=== PATIENT | male | born 1945 | race Hispanic/Latino ===

== ENCOUNTER 2017-04-01 17:26 | Inpatient (IN) | payer MEDICARE ==
[~2017-04-01] VITALS: Ht 149.9 cm; Wt 64.7 kg
[2017-04-01] MEDS: MEROPENEM 1 GM VIAL IVP SCH (18:00)
[2017-04-01] MEDS ORDERED: PHARMACY COMMUNICATION MISC SCH (18:15)
[2017-04-01] MEDS ORDERED: ONDANSETRON HCL 4 MG/2 ML VIAL IVP PRN (18:15)
[2017-04-01] MEDS ORDERED: VANCOMYCIN 1GM+NS 250ML 250 ML IV SCH (18:15)
[2017-04-01] MEDS ORDERED: IPRATROPIUM/ALBUTEROL SULFATE 3 ML SOLUTION IH PRN (18:15)
[2017-04-01] MEDS ORDERED: MAG HYDROX/AL HYDROX/SIMETH ES 30 ML SUSP UDCUP PO PRN (18:15)
[2017-04-01] MEDS ORDERED: GUAIFENESIN SUGAR-FREE 100 MG/5 ML UDCUP PO PRN (18:15)
[2017-04-01] MEDS ORDERED: LACTULOSE 20 GM/30 ML UDCUP PO PRN (18:15)
[2017-04-01] MEDS ORDERED: NALOXONE HCL 0.4 MG/1 ML ML IVP PRN (18:15)
[2017-04-01] MEDS ORDERED: GLUCAGON 1MG KIT 1 MG ML IM PRN (18:15)
[2017-04-01] MEDS ORDERED: SODIUM CHLORIDE 0.9% 10 ML VIAL IVP SCH (18:15)
[2017-04-01] MEDS ORDERED: DiphenhydrAMINE HCL 50 MG/ML VIAL IVP PRN (18:15)
[2017-04-01] MEDS ORDERED: LIDOCAINE HCL-MPF 1% 2ML VIAL IJ PRN (18:15)
[2017-04-01] MEDS ORDERED: ZOLPIDEM TARTRATE 5 MG TAB PO PRN (18:15)
[2017-04-01] MEDS ORDERED: POTASSIUM CHLORIDE 20 MEQ ERTAB PO PRN (18:15)
[2017-04-01] MEDS ORDERED: VANCOMYCIN PROTOCOL PER PHARMACY IV SCH (18:15)
[2017-04-01] MEDS ORDERED: NITROGLYCERIN 0.4 MG SL TAB SL PRN (18:15)
[2017-04-01] MEDS ORDERED: SODIUM CHLORIDE 0.9% 1000ML 1,000 ML IV PRN (18:15)
[2017-04-01] MEDS ORDERED: ACETAMINOPHEN 325 MG TAB PO PRN ×2 (18:15)
[2017-04-01] MEDS ORDERED: MORPHINE-NS 50 MG/50 ML 50 ML IV PRN (18:15)
[2017-04-01] MEDS ORDERED: POTASSIUM CHLORIDE 10% ELIXIR 20 MEQ/15 ML UDCUP PO PRN (18:15)
[2017-04-01] MEDS ORDERED: POTASSIUM CHLORIDE 20MEQ/100ML 100 ML IV PRN (18:15)
[2017-04-01] MEDS ORDERED: DEXTROSE 50%-WATER 50 ML DISP.SYRIN IV PRN (18:15)
[2017-04-01] MEDS ORDERED: DIPHENHYDRAMINE HCL 25 MG CAPSULE PO PRN (18:15)
[2017-04-01 18:29] LABS: BASOPHILS % (AUTO) 0.5 % (0.0-5.0); EOSINOPHILS % (AUTO) 4.5 % (0.0-8.0); HEMATOCRIT 30.4 % (42-54); LYMPHOCYTES % (AUTO) 24.6 % (21.0-51.0); MEAN CORPUSCULAR HEMOGLOBIN 31.4 pg (27.0-33.0); MEAN CORPUSCULAR HGB CONC 34.4 g/dL (32.0-36.0); MEAN CORPUSCULAR VOLUME 91.3 fL (79-99); MONOCYTES % (AUTO) 9.5 % (3.0-13.0); NEUTROPHILS % (AUTO) 60.9 % (40.0-77.0); PLATELET COUNT (AUTO) 225 K/uL (130-400); RED BLOOD CELL COUNT(AUTO) 3.34 MIL/uL (4.50-6.20); RED CELL DISTRIBUTION WIDTH 13.7 % (11.0-15.5); WHITE BLOOD COUNT (AUTO) 5.3 K/uL (4.8-10.8)
[2017-04-01 18:43] LABS: CREATININE 1.4 mg/dL (0.5-1.5); POTASSIUM 4.3 mmol/L (3.5-5.1)
[2017-04-01 18:48] LABS: BILIRUBIN,TOTAL 0.2 mg/dL (0.2-1.0); TOTAL PROTEIN, SERUM 6.2 g/dL (6.0-8.3)
[2017-04-01] MEDS ORDERED: VANCOMYCIN 1GM+NS 250ML 250 ML IV ONE (19:25)
[2017-04-01] MEDS ORDERED: MEROPENEM 1 GM VIAL ONE (19:25)
[2017-04-01] MEDS ORDERED: FAMOTIDINE 20MG TAB 20 MG TAB ONE (19:25)
[2017-04-01] MEDS: INSULIN R PO SSI SQ SCH (21:00)
[2017-04-01] MEDS: FAMOTIDINE 20MG TAB 20 MG TAB PO SCH (21:00)
[2017-04-01] MEDS ORDERED: SODIUM CHLORIDE 0.9% 10 ML VIAL IVP PRN (23:45)
[2017-04-01] MEDS: SODIUM CHLORIDE 0.9% 10 ML VIAL IVP SCH (23:45)
[2017-04-02] VITALS (14 sets, daily range): BP systolic 129–182; BP diastolic 66–93
[2017-04-02] MEDS ORDERED: SODIUM CHLORIDE 0.9% 250 ML IV ONE (00:23)
[2017-04-02] MEDS ORDERED: CLOP75TA32 PO (00:58)
[2017-04-02] MEDS ORDERED: LEVO25TA54 PO (00:58)
[2017-04-02] MEDS ORDERED: AEC81 PO (00:58)
[2017-04-02] MEDS ORDERED: ATOR20TA65 PO (00:58)
[2017-04-02] MEDS ORDERED: METF10004 PO (00:58)
[2017-04-02] MEDS ORDERED: CLON0.2T PO (00:58)
[2017-04-02] MEDS ORDERED: PANT40TA PO (00:58)
[2017-04-02] MEDS ORDERED: GABA-531 PO (00:58)
[2017-04-02] MEDS ORDERED: GEMF600T3 PO (00:58)
[2017-04-02] MEDS: MEROPENEM 1 GM VIAL IVP SCH ×3 (04:28→21:26)
[2017-04-02] MEDS: INSULIN R PO SSI SQ SCH ×4 (06:52→21:47)
[2017-04-02] MEDS: SODIUM CHLORIDE 0.9% 10 ML VIAL IVP SCH ×3 (07:45→23:45)
[2017-04-02 08:33] LABS: CREATININE 1.2 mg/dL (0.5-1.5); POTASSIUM 4.6 mmol/L (3.5-5.1)
[2017-04-02 08:41] LABS: HEMATOCRIT 33.7 % (42-54); MEAN CORPUSCULAR HGB CONC 35.5 g/dL (32.0-36.0); MEAN CORPUSCULAR VOLUME 90.2 fL (79-99); PLATELET COUNT (AUTO) 240 K/uL (130-400); RED BLOOD CELL COUNT(AUTO) 3.73 MIL/uL (4.50-6.20); RED CELL DISTRIBUTION WIDTH 13.3 % (11.0-15.5); WHITE BLOOD COUNT (AUTO) 5.8 K/uL (4.8-10.8)
[2017-04-02] MEDS ORDERED: FLU VACC QS2017-18 36MOS UP/PF 60 MCG/0.5 ML ML IM NR (08:45)
[2017-04-02] MEDS: CLONIDINE HCL 0.2 MG TABLET PO SCH ×2 (09:00→23:34)
[2017-04-02] MEDS: FAMOTIDINE 20MG TAB 20 MG TAB PO SCH ×2 (12:39→21:33)
[2017-04-02] MEDS: GEMFIBROZIL 600 MG TABLET PO SCH ×2 (12:39→21:33)
[2017-04-02] MEDS: GABAPENTIN 300 MG CAPSULE PO SCH ×2 (12:40→21:33)
[2017-04-02] MEDS: HYDROCODONE/ACETAMINOPHEN 5/325 MG TAB PO PRN ×2 (12:40→23:35)
[2017-04-02] MEDS: CLOPIDOGREL BISULFATE 75 MG TAB PO SCH (12:40)
[2017-04-02] MEDS: ASPIRIN 81 MG EC TAB PO SCH (12:41)
[2017-04-02] MEDS: CLONIDINE HCL 0.1 MG TABLET PO PRN (12:45)
[2017-04-02] MEDS: SODIUM CHLORIDE 0.9% 1000ML 1,000 ML IV SCH (15:07)
[2017-04-02] MEDS ORDERED: DiphenhydrAMINE HCL 50 MG/ML VIAL IVP PRN (15:15)
[2017-04-02 15:23] LABS: HEMATOCRIT 32.4 % (42-54); MEAN CORPUSCULAR HEMOGLOBIN 32.2 pg (27.0-33.0); MEAN CORPUSCULAR HGB CONC 35.6 g/dL (32.0-36.0); MEAN CORPUSCULAR VOLUME 90.3 fL (79-99); PLATELET COUNT (AUTO) 242 K/uL (130-400); RED BLOOD CELL COUNT(AUTO) 3.59 MIL/uL (4.50-6.20); WHITE BLOOD COUNT (AUTO) 6.3 K/uL (4.8-10.8)
[2017-04-02 15:31] LABS: CREATININE 1.1 mg/dL (0.5-1.5); POTASSIUM 4.5 mmol/L (3.5-5.1)
[2017-04-02 15:35] LABS: INR 0.94 (0.85-1.15); PARTIAL THROMBOPLASTIN TIME 28.4 SEC (26.3-35.5); PROTHROMBIN TIME 9.9 SEC (9.6-11.6)
[2017-04-02] MEDS ORDERED: LIDOCAINE HCL 2% 20ML ONE (15:38)
[2017-04-02] MEDS ORDERED: NITROGLYCERIN 5 MG/ML 10 ML VIAL IV ONE (15:38)
[2017-04-02] MEDS ORDERED: HEPARIN SODIUM 1000UNIT/ML 10ML VIAL ONE (15:38)
[2017-04-02] MEDS ORDERED: ISOVUE-300 100 ML VIAL IV ONE ×2 (15:38→16:42)
[2017-04-02] MEDS ORDERED: MIDAZOLAM HCL 1 MG/ML 2ML VIAL ONE (16:31)
[2017-04-02] MEDS ORDERED: FENTANYL CITRATE PF 50 MCG/1 ML 2ML VIAL ONE (16:31)
[2017-04-02] MEDS: METFORMIN HCL 500 MG TABLET PO SCH (17:00)
[2017-04-02] MEDS ORDERED: LABETALOL 20 MG/4 ML DISP.SYRIN IV ONE (17:49)
[2017-04-02] MEDS ORDERED: NITROGLYCERIN 50 MG/D5% WATER 1 BOT ONE (18:02)
[2017-04-02] MEDS ORDERED: HYDRALAZINE HCL 20 MG/ML VIAL ONE (18:08)
[2017-04-02] MEDS ORDERED: ASPIRIN 325MG EC TAB 325 MG TABLET.DR PO ONE (18:22)
[2017-04-02] MEDS ORDERED: TICAGRELOR 90 MG TABLET ONE (18:22)
[2017-04-02] MEDS ORDERED: SODIUM CHLORIDE 0.9% 1000ML 1,000 ML IV SCH (18:23)
[2017-04-02] MEDS: ATORVASTATIN CALCIUM 20 MG TABLET PO SCH (21:33)
[2017-04-02] MEDS: VANCOMYCIN 1GM+NS 250ML 250 ML IV SCH (21:49)
[2017-04-03] VITALS (7 sets, daily range): BP systolic 130–173; BP diastolic 62–95
[2017-04-03] MEDS: SODIUM CHLORIDE 0.9% 1000ML 1,000 ML IV SCH ×2 (01:07→11:22)
[2017-04-03] MEDS: MEROPENEM 1 GM VIAL IVP SCH ×3 (02:36→17:06)
[2017-04-03 05:13] LABS: HEMATOCRIT 31.6 % (42-54); MEAN CORPUSCULAR HGB CONC 34.3 g/dL (32.0-36.0); MEAN CORPUSCULAR VOLUME 90.4 fL (79-99); PLATELET COUNT (AUTO) 237 K/uL (130-400); RED CELL DISTRIBUTION WIDTH 13.7 % (11.0-15.5); WHITE BLOOD COUNT (AUTO) 6.7 K/uL (4.8-10.8)
[2017-04-03 06:02] LABS: CREATININE 1.4 mg/dL (0.5-1.5); POTASSIUM 3.9 mmol/L (3.5-5.1)
[2017-04-03] MEDS: INSULIN R PO SSI SQ SCH ×4 (06:41→20:25)
[2017-04-03] MEDS: LEVOTHYROXINE 25 MCG TABLET PO SCH (06:42)
[2017-04-03] MEDS: SODIUM CHLORIDE 0.9% 10 ML VIAL IVP SCH ×3 (07:45→23:45)
[2017-04-03] MEDS: CLONIDINE HCL 0.2 MG TABLET PO SCH ×2 (09:00→20:21)
[2017-04-03] MEDS: CLOPIDOGREL BISULFATE 75 MG TAB PO SCH ×2 (09:00→10:53)
[2017-04-03] MEDS ORDERED: DOCUSATE SODIUM 100 MG CAP PO PRN (09:00)
[2017-04-03] MEDS: PANTOPRAZOLE SODIUM 40 MG TABLET.DR PO SCH (10:50)
[2017-04-03] MEDS: METFORMIN HCL 500 MG TABLET PO SCH ×2 (10:52→17:06)
[2017-04-03] MEDS: ASPIRIN 81 MG EC TAB PO SCH (10:53)
[2017-04-03] MEDS: FAMOTIDINE 20MG TAB 20 MG TAB PO SCH ×2 (10:53→20:11)
[2017-04-03] MEDS: GEMFIBROZIL 600 MG TABLET PO SCH ×2 (10:53→20:11)
[2017-04-03] MEDS: GABAPENTIN 300 MG CAPSULE PO SCH ×2 (10:53→20:11)
[2017-04-03] MEDS: CLONIDINE HCL 0.1 MG TABLET PO PRN ×2 (17:06→20:11)
[2017-04-03] MEDS: VANCOMYCIN 1GM+NS 250ML 250 ML IV SCH (18:05)
[2017-04-03] MEDS: ATORVASTATIN CALCIUM 20 MG TABLET PO SCH (20:11)
[2017-04-03] MEDS: HYDROCODONE/ACETAMINOPHEN 5/325 MG TAB PO PRN (20:13)
[2017-04-04] VITALS: BP 152/86
[2017-04-04] MEDS: MEROPENEM 1 GM VIAL IVP SCH ×3 (03:13→18:11)
[2017-04-04] MEDS: SODIUM CHLORIDE 0.9% 1000ML 1,000 ML IV SCH ×4 (03:18→17:07)
[2017-04-04] MEDS: CLONIDINE HCL 0.1 MG TABLET PO PRN (03:49)
[2017-04-04 04:00] VITALS: BP 170/94
[2017-04-04 04:08] LABS: HEMATOCRIT 30.2 % (42-54); MEAN CORPUSCULAR HEMOGLOBIN 30.6 pg (27.0-33.0); MEAN CORPUSCULAR HGB CONC 33.7 g/dL (32.0-36.0); MEAN CORPUSCULAR VOLUME 90.9 fL (79-99); PLATELET COUNT (AUTO) 206 K/uL (130-400); RED BLOOD CELL COUNT(AUTO) 3.33 MIL/uL (4.50-6.20); RED CELL DISTRIBUTION WIDTH 13.4 % (11.0-15.5); WHITE BLOOD COUNT (AUTO) 6.4 K/uL (4.8-10.8)
[2017-04-04 04:15] LABS: INR 0.95 (0.85-1.15)
[2017-04-04 04:16] LABS: CREATININE 1.2 mg/dL (0.5-1.5); POTASSIUM 4.4 mmol/L (3.5-5.1)
[2017-04-04] MEDS: INSULIN R PO SSI SQ SCH ×4 (05:23→21:12)
[2017-04-04] MEDS: LEVOTHYROXINE 25 MCG TABLET PO SCH (05:23)
[2017-04-04 08:00] VITALS: BP 155/83
[2017-04-04] MEDS: CLONIDINE HCL 0.2 MG TABLET PO SCH ×2 (09:00→20:22)
[2017-04-04] MEDS: CLOPIDOGREL BISULFATE 75 MG TAB PO SCH ×2 (09:00→10:39)
[2017-04-04] MEDS: FAMOTIDINE 20MG TAB 20 MG TAB PO SCH ×2 (10:38→20:25)
[2017-04-04] MEDS: METFORMIN HCL 500 MG TABLET PO SCH ×2 (10:38→18:11)
[2017-04-04] MEDS: GEMFIBROZIL 600 MG TABLET PO SCH ×2 (10:38→20:25)
[2017-04-04] MEDS: GABAPENTIN 300 MG CAPSULE PO SCH ×2 (10:38→20:25)
[2017-04-04] MEDS: ASPIRIN 81 MG EC TAB PO SCH (10:39)
[2017-04-04] MEDS: PANTOPRAZOLE SODIUM 40 MG TABLET.DR PO SCH (10:39)
[2017-04-04] MEDS: SODIUM CHLORIDE 0.9% 10 ML VIAL IVP SCH ×3 (10:39→23:45)
[2017-04-04 12:00] VITALS: BP 169/86
[2017-04-04 16:00] VITALS: BP 149/80
[2017-04-04] MEDS: VANCOMYCIN 1GM+NS 250ML 250 ML IV SCH (18:10)
[2017-04-04 20:17] VITALS: BP 147/82
[2017-04-04] MEDS: ATORVASTATIN CALCIUM 20 MG TABLET PO SCH (20:25)
[2017-04-04] MEDS: HYDROCODONE/ACETAMINOPHEN 5/325 MG TAB PO PRN (20:26)
[2017-04-05] VITALS (21 sets, daily range): BP systolic 103–177; BP diastolic 34–94
[2017-04-05] MEDS: SODIUM CHLORIDE 0.9% 1000ML 1,000 ML IV SCH ×3 (02:56→21:09)
[2017-04-05] MEDS: MEROPENEM 1 GM VIAL IVP SCH ×3 (02:56→17:37)
[2017-04-05] MEDS: PANTOPRAZOLE SODIUM 40 MG TABLET.DR PO SCH (06:29)
[2017-04-05] MEDS: LEVOTHYROXINE 25 MCG TABLET PO SCH (06:29)
[2017-04-05] MEDS: INSULIN R PO SSI SQ SCH ×4 (06:30→20:59)
[2017-04-05] MEDS: SODIUM CHLORIDE 0.9% 10 ML VIAL IVP SCH ×3 (06:30→22:12)
[2017-04-05] MEDS ORDERED: DEXAMETHASONE SOD PHOSPHATE 10MG/ML 1ML VIAL ONE (07:17)
[2017-04-05] MEDS ORDERED: ONDANSETRON HCL 4 MG/2 ML VIAL ONE (07:17)
[2017-04-05] MEDS ORDERED: SUCCINYLCHOLINE 200MG/10ML SYR ONE (07:17)
[2017-04-05] MEDS ORDERED: LIDOCAINE PF 2% 5ML ABBOJECT ONE (07:17)
[2017-04-05] MEDS ORDERED: GLYCOPYRROLATE 0.2 MG/ML 5 ML VIAL ONE (07:17)
[2017-04-05] MEDS ORDERED: PROPOFOL 10 MG/ML 20ML VIAL IV ONE (07:18)
[2017-04-05] MEDS ORDERED: FENTANYL CITRATE PF 50 MCG/1 ML 2ML VIAL ONE (07:18)
[2017-04-05] MEDS ORDERED: MIDAZOLAM HCL 1 MG/ML 2ML VIAL ONE (07:18)
[2017-04-05] MEDS: METFORMIN HCL 500 MG TABLET PO SCH ×2 (08:00→17:38)
[2017-04-05] MEDS ORDERED: BUPIVACAINE/PF 0.5% 30ML VIAL ONE (08:21)
[2017-04-05] MEDS ORDERED: LIDOCAINE HCL 1% 20 ML VIAL ONE (08:21)
[2017-04-05] MEDS: CLONIDINE HCL 0.2 MG TABLET PO SCH ×2 (09:00→21:09)
[2017-04-05] MEDS: GABAPENTIN 300 MG CAPSULE PO SCH ×2 (09:00→21:08)
[2017-04-05] MEDS: GEMFIBROZIL 600 MG TABLET PO SCH ×2 (09:00→21:11)
[2017-04-05] MEDS: CLOPIDOGREL BISULFATE 75 MG TAB PO SCH ×2 (09:00)
[2017-04-05] MEDS: VANCOMYCIN 1GM+NS 250ML 250 ML IV SCH ×2 (12:00→17:58)
[2017-04-05] MEDS: ASPIRIN 81 MG EC TAB PO SCH (12:10)
[2017-04-05] MEDS: FAMOTIDINE 20MG TAB 20 MG TAB PO SCH ×2 (12:11→21:07)
[2017-04-05] MEDS: ATORVASTATIN CALCIUM 20 MG TABLET PO SCH (21:07)
[2017-04-05] MEDS: HYDROCODONE/ACETAMINOPHEN 5/325 MG TAB PO PRN (21:08)
[2017-04-06] MEDS: MEROPENEM 1 GM VIAL IVP SCH ×3 (01:19→18:26)
[2017-04-06] MEDS: HYDROCODONE/ACETAMINOPHEN 5/325 MG TAB PO PRN ×3 (01:20→09:38)
[2017-04-06 04:00] VITALS: BP 152/90
[2017-04-06] MEDS: INSULIN R PO SSI SQ SCH ×4 (06:05→21:00)
[2017-04-06] MEDS: PANTOPRAZOLE SODIUM 40 MG TABLET.DR PO SCH (06:10)
[2017-04-06] MEDS: LEVOTHYROXINE 25 MCG TABLET PO SCH (06:10)
[2017-04-06] MEDS: VANCOMYCIN 1GM+NS 250ML 250 ML IV SCH ×2 (06:11→23:21)
[2017-04-06 08:00] VITALS: BP 196/100
[2017-04-06] MEDS: CLOPIDOGREL BISULFATE 75 MG TAB PO SCH ×2 (09:00→09:39)
[2017-04-06] MEDS: ASPIRIN 81 MG EC TAB PO SCH (09:38)
[2017-04-06] MEDS: CLONIDINE HCL 0.2 MG TABLET PO SCH ×2 (09:38→21:19)
[2017-04-06] MEDS: GABAPENTIN 300 MG CAPSULE PO SCH ×2 (09:38→21:20)
[2017-04-06] MEDS: SODIUM CHLORIDE 0.9% 10 ML VIAL IVP SCH ×3 (09:39→23:20)
[2017-04-06] MEDS: GEMFIBROZIL 600 MG TABLET PO SCH ×2 (09:39→21:19)
[2017-04-06] MEDS: FAMOTIDINE 20MG TAB 20 MG TAB PO SCH ×2 (09:39→21:19)
[2017-04-06] MEDS: METFORMIN HCL 500 MG TABLET PO SCH ×2 (09:42→18:28)
[2017-04-06] MEDS: SODIUM CHLORIDE 0.9% 1000ML 1,000 ML IV SCH ×2 (09:43→19:07)
[2017-04-06 12:00] VITALS: BP 178/93
[2017-04-06] MEDS: ACETAMINOPHEN-CODEINE 300/30MG TAB PO PRN ×2 (13:51→18:27)
[2017-04-06 15:55] VITALS: BP 190/108
[2017-04-06] MEDS: CLONIDINE HCL 0.1 MG TABLET PO PRN (18:27)
[2017-04-06 19:00] VITALS: BP 191/94
[2017-04-06] MEDS: ATORVASTATIN CALCIUM 20 MG TABLET PO SCH (21:19)
[2017-04-06] MEDS: HYDROCODONE/ACETAMINOPHEN 7.5/325 MG TAB PO PRN (21:19)
[2017-04-07] VITALS (9 sets, daily range): BP systolic 136–182; BP diastolic 67–104
[2017-04-07] MEDS: MEROPENEM 1 GM VIAL IVP SCH ×3 (02:43→17:15)
[2017-04-07] MEDS: CLONIDINE HCL 0.1 MG TABLET PO PRN ×2 (02:43→12:39)
[2017-04-07 05:50] LABS: HEMATOCRIT 28.5 % (42-54); MEAN CORPUSCULAR HEMOGLOBIN 31.1 pg (27.0-33.0); MEAN CORPUSCULAR HGB CONC 34.2 g/dL (32.0-36.0); MEAN CORPUSCULAR VOLUME 91.2 fL (79-99); PLATELET COUNT (AUTO) 237 K/uL (130-400); RED BLOOD CELL COUNT(AUTO) 3.12 MIL/uL (4.50-6.20); RED CELL DISTRIBUTION WIDTH 14.2 % (11.0-15.5); WHITE BLOOD COUNT (AUTO) 10.1 K/uL (4.8-10.8)
[2017-04-07 06:00] LABS: BAND NEUTROPHILS % (MANUAL) 2 % (0-2); EOSINOPHILS % (MANUAL) 4 % (1-6); LYMPHOCYTES % (MANUAL) 7 % (22-44); MONOCYTES % (MANUAL) 2 % (2-9); POTASSIUM 4.9 mmol/L (3.5-5.1); SEGMENTED NEUTROPHILS % 85 % (40-70)
[2017-04-07 06:01] LABS: MAN.DIFF COMMENT-IMPRESSION MANUAL DIFFERENTIAL; PLATELET MORPHOLOGY COMMENT ADEQUATE
[2017-04-07] MEDS: INSULIN R PO SSI SQ SCH ×4 (06:21→21:00)
[2017-04-07] MEDS: SODIUM CHLORIDE 0.9% 10 ML VIAL IVP SCH ×3 (06:22→23:45)
[2017-04-07] MEDS: PANTOPRAZOLE SODIUM 40 MG TABLET.DR PO SCH (06:37)
[2017-04-07] MEDS: SODIUM CHLORIDE 0.9% 1000ML 1,000 ML IV SCH ×2 (06:37→15:07)
[2017-04-07] MEDS: LEVOTHYROXINE 25 MCG TABLET PO SCH (06:37)
[2017-04-07] MEDS: METFORMIN HCL 500 MG TABLET PO SCH ×2 (09:29→17:14)
[2017-04-07] MEDS: ASPIRIN 81 MG EC TAB PO SCH (12:38)
[2017-04-07] MEDS: GABAPENTIN 300 MG CAPSULE PO SCH ×2 (12:40→21:22)
[2017-04-07] MEDS: GEMFIBROZIL 600 MG TABLET PO SCH ×2 (12:40→21:21)
[2017-04-07] MEDS: FAMOTIDINE 20MG TAB 20 MG TAB PO SCH ×2 (12:44→21:25)
[2017-04-07] MEDS: CLOPIDOGREL BISULFATE 75 MG TAB PO SCH (12:44)
[2017-04-07] MEDS: CLONIDINE HCL 0.2 MG TABLET PO SCH ×2 (12:59→21:25)
[2017-04-07] MEDS: VANCOMYCIN 1GM+NS 250ML 250 ML IV SCH (17:15)
[2017-04-07] MEDS: ATORVASTATIN CALCIUM 20 MG TABLET PO SCH (21:22)
[2017-04-07] MEDS: HYDROCODONE/ACETAMINOPHEN 7.5/325 MG TAB PO PRN (21:26)
[2017-04-08] VITALS (8 sets, daily range): BP systolic 142–189; BP diastolic 70–90
[2017-04-08] MEDS: SODIUM CHLORIDE 0.9% 1000ML 1,000 ML IV SCH ×2 (01:14→15:02)
[2017-04-08] MEDS: MEROPENEM 1 GM VIAL IVP SCH ×3 (03:27→17:10)
[2017-04-08] MEDS: INSULIN R PO SSI SQ SCH ×4 (06:26→21:00)
[2017-04-08] MEDS: LEVOTHYROXINE 25 MCG TABLET PO SCH (06:35)
[2017-04-08] MEDS: PANTOPRAZOLE SODIUM 40 MG TABLET.DR PO SCH (06:36)
[2017-04-08] MEDS: ASPIRIN 81 MG EC TAB PO SCH (09:32)
[2017-04-08] MEDS: GABAPENTIN 300 MG CAPSULE PO SCH ×2 (09:32→20:42)
[2017-04-08] MEDS: CLOPIDOGREL BISULFATE 75 MG TAB PO SCH (09:33)
[2017-04-08] MEDS: GEMFIBROZIL 600 MG TABLET PO SCH ×2 (09:33→20:41)
[2017-04-08] MEDS: FAMOTIDINE 20MG TAB 20 MG TAB PO SCH ×2 (09:33→20:41)
[2017-04-08] MEDS: METFORMIN HCL 500 MG TABLET PO SCH ×2 (09:33→17:09)
[2017-04-08] MEDS: CLONIDINE HCL 0.2 MG TABLET PO SCH ×2 (09:49→20:40)
[2017-04-08] MEDS ORDERED: HYDROMORPHONE 1 MG/1 ML AMP IVP PRN (12:30)
[2017-04-08] MEDS ORDERED: MORPHINE SULFATE 2 MG/ML 1ML SYG IVP PRN (12:30)
[2017-04-08] MEDS: ACETAMINOPHEN-CODEINE 300/30MG TAB PO PRN (15:00)
[2017-04-08] MEDS: VANCOMYCIN 1GM+NS 250ML 250 ML IV SCH (15:01)
[2017-04-08] MEDS: SODIUM CHLORIDE 0.9% 10 ML VIAL IVP SCH ×3 (15:02→23:45)
[2017-04-08] MEDS: CLONIDINE HCL 0.1 MG TABLET PO PRN (17:10)
[2017-04-08] MEDS: ATORVASTATIN CALCIUM 20 MG TABLET PO SCH (20:41)
[2017-04-09] MEDS: MEROPENEM 1 GM VIAL IVP SCH ×2 (02:55→11:51)
[2017-04-09] MEDS: HYDROCODONE/ACETAMINOPHEN 5/325 MG TAB PO PRN (02:57)
[2017-04-09 04:00] VITALS: BP 152/68
[2017-04-09 07:30] VITALS: BP 145/75
[2017-04-09] MEDS: INSULIN R PO SSI SQ SCH ×2 (07:30→11:30)
[2017-04-09] MEDS: SODIUM CHLORIDE 0.9% 10 ML VIAL IVP SCH (07:45)
[2017-04-09 11:00] VITALS: BP 176/74
[2017-04-09] MEDS: METFORMIN HCL 500 MG TABLET PO SCH (11:51)
[2017-04-09] MEDS: GABAPENTIN 300 MG CAPSULE PO SCH (11:52)
[2017-04-09] MEDS: CLOPIDOGREL BISULFATE 75 MG TAB PO SCH (11:52)
[2017-04-09] MEDS: ASPIRIN 81 MG EC TAB PO SCH (11:52)
[2017-04-09] MEDS: GEMFIBROZIL 600 MG TABLET PO SCH (11:52)
[2017-04-09] MEDS: PANTOPRAZOLE SODIUM 40 MG TABLET.DR PO SCH (11:52)
[2017-04-09] MEDS: FAMOTIDINE 20MG TAB 20 MG TAB PO SCH (11:53)
[2017-04-09] MEDS: CLONIDINE HCL 0.2 MG TABLET PO SCH (12:38)
[2017-04-09] MEDS: LEVOTHYROXINE 25 MCG TABLET PO SCH (12:38)
[2017-04-09 16:00] VITALS: BP 153/77
[2017-04-10] MEDS ORDERED: VANCOMYCIN 1GM+NS 250ML 250 ML IV SCH (09:00)
== END 2017-04-09 16:40 | DRG 252 ==
LOC: EDH 17:26 → EDHIP 17:38 → 3CH 23:16
PROVIDERS: ADMIT Family Medicine; ATTEND Family Medicine
PROC: B41D1ZZ Fluoroscopy of Aorta and Bilateral Lower Extremity Arteries using Low Osmolar Contrast (ICD-10-PCS; principal; 2017-04-02)
PROC: B41G1ZZ Fluoroscopy of Left Lower Extremity Arteries using Low Osmolar Contrast (ICD-10-PCS; 2017-04-02)
PROC: 3E0234Z Introduction of Serum, Toxoid and Vaccine into Muscle, Percutaneous Approach (ICD-10-PCS; 2017-04-02)
PROC: 047N34Z Dilation of Left Popliteal Artery with Drug-eluting Intraluminal Device, Percutaneous Approach (ICD-10-PCS; 2017-04-02)
PROC: 047Q3ZZ Dilation of Left Anterior Tibial Artery, Percutaneous Approach (ICD-10-PCS; 2017-04-02)
PROC: 047U3ZZ Dilation of Left Peroneal Artery, Percutaneous Approach (ICD-10-PCS; 2017-04-02)
PROC: 0Y6Q0Z2 Detachment at Left 1st Toe, Mid, Open Approach (ICD-10-PCS; 2017-04-05)
DX: E11.52 Type 2 diabetes mellitus with diabetic peripheral angiopathy with gangrene (principal); N18.6 End stage renal disease; E11.22 Type 2 diabetes mellitus with diabetic chronic kidney disease; E11.69 Type 2 diabetes mellitus with other specified complication; I12.0 Hypertensive chronic kidney disease with stage 5 chronic kidney disease or end stage renal disease; L03.116 Cellulitis of left lower limb; M86.9 Osteomyelitis, unspecified; M86.8X7 Other osteomyelitis, ankle and foot; Z23 Encounter for immunization; E78.5 Hyperlipidemia, unspecified; L03.032 Cellulitis of left toe; I10 Essential (primary) hypertension; E03.9 Hypothyroidism, unspecified; K21.9 Gastro-esophageal reflux disease without esophagitis; M19.90 Unspecified osteoarthritis, unspecified site; Z98.49 Cataract extraction status, unspecified eye; Z89.411 Acquired absence of right great toe; Z99.2 Dependence on renal dialysis
CPT/HCPCS: 36415; 37226; 37230; 37232; 71045; 73630; 73718; 75710; 75774; 80048; 80053; 80202; 82948; 85025; 85027; 85347; 85610; 85730; 87040; 88304; 88305; 88311; 93925; 94664; 99152; 99153; A4218; C1760; C1769; C1893; C1894; G0008; J0330; J0360; J1100; J1644; J1815; J2001; J2185; J2250; J2270; J2405; J2704; J3010; J3370; J3490; J7030; Q2038; Q9967

== ENCOUNTER 2017-05-19 12:05 | Inpatient (IN) | payer MEDICARE ==
[~2017-05-19] VITALS: Ht 147.3 cm; Wt 64.0 kg
[~2017-05-19 12:05] MED LIST: AEC81 PO; ATOR20TA65 PO; CLON0.2T PO; CLOP75TA32 PO; GABA-531 PO; GEMF600T3 PO; LEVO25TA54 PO; METF10004 PO; PANT40TA PO
[2017-05-19] MEDS ORDERED: MEROPENEM 1 GM VIAL ONE (13:30)
[2017-05-19 13:37] LABS: BASOPHILS % (AUTO) 0.4 % (0.0-5.0); EOSINOPHILS % (AUTO) 3.4 % (0.0-8.0); HEMATOCRIT 32.5 % (42-54); LYMPHOCYTES % (AUTO) 33.7 % (21.0-51.0); MEAN CORPUSCULAR HEMOGLOBIN 29.2 pg (27.0-33.0); MEAN CORPUSCULAR HGB CONC 33.3 g/dL (32.0-36.0); MEAN CORPUSCULAR VOLUME 87.9 fL (79-99); MONOCYTES % (AUTO) 7.6 % (3.0-13.0); NEUTROPHILS % (AUTO) 54.9 % (40.0-77.0); PLATELET COUNT (AUTO) 258 K/uL (130-400); RED BLOOD CELL COUNT(AUTO) 3.69 MIL/uL (4.50-6.20); RED CELL DISTRIBUTION WIDTH 15.7 % (11.0-15.5); WHITE BLOOD COUNT (AUTO) 6.2 K/uL (4.8-10.8)
[2017-05-19 13:44] LABS: CREATININE 1.4 mg/dL (0.5-1.5); POTASSIUM 4.7 mmol/L (3.5-5.1)
[2017-05-19 14:00] LABS: ALBUMIN 3.5 g/dL (3.5-5.0); BILIRUBIN,TOTAL 0.3 mg/dL (0.2-1.0); TOTAL PROTEIN, SERUM 7.1 g/dL (6.0-8.3)
[2017-05-19] MEDS: VANCOMYCIN 1GM+NS 250ML 250 ML IV SCH (16:00)
[2017-05-19] MEDS ORDERED: VANCOMYCIN PROTOCOL PER PHARMACY IV SCH (16:00)
[2017-05-19] MEDS ORDERED: VANCOMYCIN 1GM+NS 250ML 250 ML IV ONE (17:02)
[2017-05-19 18:15] VITALS: BP 191/111
[2017-05-19] MEDS ORDERED: IPRATROPIUM/ALBUTEROL SULFATE 3 ML SOLUTION IH PRN (19:15)
[2017-05-19] MEDS ORDERED: ZOLPIDEM TARTRATE 5 MG TAB PO PRN (19:15)
[2017-05-19] MEDS ORDERED: GUAIFENESIN SUGAR-FREE 100 MG/5 ML UDCUP PO PRN (19:15)
[2017-05-19] MEDS ORDERED: DIPHENHYDRAMINE HCL 25 MG CAPSULE PO PRN (19:15)
[2017-05-19] MEDS ORDERED: POTASSIUM CHLORIDE 20 MEQ ERTAB PO PRN (19:15)
[2017-05-19] MEDS ORDERED: LACTULOSE 20 GM/30 ML UDCUP PO PRN (19:15)
[2017-05-19] MEDS ORDERED: DEXTROSE 50%-WATER 50 ML DISP.SYRIN IV PRN (19:15)
[2017-05-19] MEDS ORDERED: DiphenhydrAMINE HCL 50 MG/ML VIAL IVP PRN (19:15)
[2017-05-19] MEDS ORDERED: LIDOCAINE HCL-MPF 1% 2ML VIAL IJ PRN (19:15)
[2017-05-19] MEDS ORDERED: POTASSIUM CHLORIDE 20MEQ/100ML 100 ML IV PRN (19:15)
[2017-05-19] MEDS ORDERED: ONDANSETRON HCL 4 MG/2 ML VIAL IVP PRN (19:15)
[2017-05-19] MEDS ORDERED: POTASSIUM CHLORIDE 10% ELIXIR 20 MEQ/15 ML UDCUP PO PRN (19:15)
[2017-05-19] MEDS ORDERED: SODIUM CHLORIDE 0.9% 10 ML VIAL IVP SCH (19:15)
[2017-05-19] MEDS ORDERED: ONDANSETRON HCL MDV 20ML 2 MG/ML VIAL IVP PRN (19:15)
[2017-05-19] MEDS ORDERED: MAG HYDROX/AL HYDROX/SIMETH ES 30 ML SUSP UDCUP PO PRN (19:15)
[2017-05-19] MEDS ORDERED: ACETAMINOPHEN 325 MG TAB PO PRN ×2 (19:15)
[2017-05-19] MEDS ORDERED: GLUCAGON 1MG KIT 1 MG ML IM PRN (19:15)
[2017-05-19 19:27] VITALS: BP 164/82
[2017-05-19] MEDS: INSULIN R PO SSI SQ SCH (21:00)
[2017-05-19] MEDS ORDERED: CADEXOMER IODINE 40 GM GEL TP SCH (21:30)
[2017-05-19 22:04] VITALS: BP 159/86
[2017-05-19] MEDS: CADEXOMER IODINE 40 GM GEL TP SCH (23:23)
[2017-05-19] MEDS: MEROPENEM 1 GM VIAL IVP SCH (23:23)
[2017-05-19 23:36] VITALS: BP 174/90
[2017-05-19] MEDS: CLONIDINE HCL 0.1 MG TABLET PO PRN (23:38)
[2017-05-20] VITALS (7 sets, daily range): BP systolic 135–175; BP diastolic 73–98
[2017-05-20 03:51] LABS: HEMATOCRIT 33.1 % (42-54); MEAN CORPUSCULAR HEMOGLOBIN 30.1 pg (27.0-33.0); MEAN CORPUSCULAR HGB CONC 34.5 g/dL (32.0-36.0); MEAN CORPUSCULAR VOLUME 87.3 fL (79-99); PLATELET COUNT (AUTO) 251 K/uL (130-400); RED CELL DISTRIBUTION WIDTH 15.4 % (11.0-15.5); WHITE BLOOD COUNT (AUTO) 7.1 K/uL (4.8-10.8)
[2017-05-20 04:24] LABS: CREATININE 1.3 mg/dL (0.5-1.5); POTASSIUM 5.6 mmol/L (3.5-5.1)
[2017-05-20] MEDS: INSULIN R PO SSI SQ SCH ×4 (06:25→21:00)
[2017-05-20] MEDS: MEROPENEM 1 GM VIAL IVP SCH ×3 (06:55→22:55)
[2017-05-20] MEDS: FAMOTIDINE 20MG TAB 20 MG TAB PO SCH (11:01)
[2017-05-20] MEDS: ACETAMINOPHEN-CODEINE 300/30MG TAB PO PRN ×3 (11:02→17:50)
[2017-05-20] MEDS: CADEXOMER IODINE 40 GM GEL TP SCH (11:03)
[2017-05-20] MEDS: CLONIDINE HCL 0.1 MG TABLET PO PRN (13:27)
[2017-05-20] MEDS: VANCOMYCIN 1GM+NS 250ML 250 ML IV SCH (16:24)
[2017-05-21] MEDS: CLONIDINE HCL 0.1 MG TABLET PO PRN ×3 (00:48→23:44)
[2017-05-21 01:30] VITALS: BP 155/89
[2017-05-21 03:40] VITALS: BP 152/84
[2017-05-21 03:45] LABS: HEMATOCRIT 35.6 % (42-54); MEAN CORPUSCULAR HEMOGLOBIN 29.4 pg (27.0-33.0); MEAN CORPUSCULAR HGB CONC 33.9 g/dL (32.0-36.0); MEAN CORPUSCULAR VOLUME 86.7 fL (79-99); PLATELET COUNT (AUTO) 303 K/uL (130-400); RED CELL DISTRIBUTION WIDTH 15.7 % (11.0-15.5); WHITE BLOOD COUNT (AUTO) 7.6 K/uL (4.8-10.8)
[2017-05-21 04:03] LABS: CREATININE 1.3 mg/dL (0.5-1.5); POTASSIUM 4.9 mmol/L (3.5-5.1)
[2017-05-21] MEDS: MEROPENEM 1 GM VIAL IVP SCH ×3 (06:38→23:28)
[2017-05-21] MEDS: INSULIN R PO SSI SQ SCH ×4 (06:38→23:30)
[2017-05-21] MEDS: ACETAMINOPHEN-CODEINE 300/30MG TAB PO PRN ×3 (07:02→23:29)
[2017-05-21 08:00] VITALS: BP 163/92
[2017-05-21] MEDS: FAMOTIDINE 20MG TAB 20 MG TAB PO SCH (08:58)
[2017-05-21] MEDS: CADEXOMER IODINE 40 GM GEL TP SCH (08:58)
[2017-05-21] MEDS: ENOXAPARIN SODIUM 40 MG/0.4 ML SYRINGE SQ SCH (09:00)
[2017-05-21 11:00] VITALS: BP 192/90
[2017-05-21 16:00] VITALS: BP 167/98
[2017-05-21] MEDS: VANCOMYCIN 1GM+NS 250ML 250 ML IV SCH (16:39)
[2017-05-21 20:00] VITALS: BP 159/88
[2017-05-21] MEDS ORDERED: MELO-106 PO (23:54)
[2017-05-22] VITALS (9 sets, daily range): BP systolic 139–206; BP diastolic 64–109
[2017-05-22] MEDS: MEROPENEM 1 GM VIAL IVP SCH ×3 (04:19→21:24)
[2017-05-22] MEDS: CLONIDINE HCL 0.1 MG TABLET PO PRN (04:20)
[2017-05-22] MEDS: ACETAMINOPHEN-CODEINE 300/30MG TAB PO PRN ×2 (04:29→14:20)
[2017-05-22] MEDS: INSULIN R PO SSI SQ SCH ×4 (06:13→21:00)
[2017-05-22] MEDS ORDERED: LABETALOL 20 MG/4 ML DISP.SYRIN IV PRN (09:00)
[2017-05-22] MEDS: GABAPENTIN 300 MG CAPSULE PO SCH ×2 (09:11→21:24)
[2017-05-22] MEDS: LEVOTHYROXINE 25 MCG TABLET PO SCH (09:12)
[2017-05-22] MEDS: MELOXICAM 7.5 MG TABLET PO SCH (09:12)
[2017-05-22] MEDS: FAMOTIDINE 20MG TAB 20 MG TAB PO SCH (09:12)
[2017-05-22] MEDS: GEMFIBROZIL 600 MG TABLET PO SCH ×2 (09:12→21:23)
[2017-05-22] MEDS: ATORVASTATIN CALCIUM 20 MG TABLET PO SCH (09:12)
[2017-05-22] MEDS: METFORMIN HCL 500 MG TABLET PO SCH ×2 (09:13→17:11)
[2017-05-22] MEDS: CLOPIDOGREL BISULFATE 75 MG TAB PO SCH (09:13)
[2017-05-22] MEDS: CADEXOMER IODINE 40 GM GEL TP SCH (09:13)
[2017-05-22] MEDS: ENOXAPARIN SODIUM 40 MG/0.4 ML SYRINGE SQ SCH (09:14)
[2017-05-22] MEDS: VANCOMYCIN 1GM+NS 250ML 250 ML IV SCH (16:42)
[2017-05-23] VITALS (7 sets, daily range): BP systolic 156–190; BP diastolic 77–98
[2017-05-23] MEDS: CLONIDINE HCL 0.1 MG TABLET PO PRN ×2 (05:12→12:15)
[2017-05-23] MEDS: MEROPENEM 1 GM VIAL IVP SCH ×3 (05:12→21:21)
[2017-05-23] MEDS: INSULIN R PO SSI SQ SCH ×4 (05:54→21:00)
[2017-05-23] MEDS: GEMFIBROZIL 600 MG TABLET PO SCH ×2 (08:51→21:21)
[2017-05-23] MEDS: METFORMIN HCL 500 MG TABLET PO SCH ×2 (08:51→16:40)
[2017-05-23] MEDS: MELOXICAM 7.5 MG TABLET PO SCH (08:51)
[2017-05-23] MEDS: FAMOTIDINE 20MG TAB 20 MG TAB PO SCH (08:51)
[2017-05-23] MEDS: LEVOTHYROXINE 25 MCG TABLET PO SCH (08:51)
[2017-05-23] MEDS: ATORVASTATIN CALCIUM 20 MG TABLET PO SCH (08:51)
[2017-05-23] MEDS: CLOPIDOGREL BISULFATE 75 MG TAB PO SCH (08:51)
[2017-05-23] MEDS: GABAPENTIN 300 MG CAPSULE PO SCH ×2 (08:54→21:21)
[2017-05-23] MEDS: ENOXAPARIN SODIUM 40 MG/0.4 ML SYRINGE SQ SCH (08:56)
[2017-05-23] MEDS: CADEXOMER IODINE 40 GM GEL TP SCH (12:15)
[2017-05-23] MEDS: VANCOMYCIN 1GM+NS 250ML 250 ML IV SCH (16:41)
[2017-05-23] MEDS ORDERED: AMLO5TAB4 PO (20:00)
[2017-05-23] MEDS ORDERED: ADV250 IH (20:00)
[2017-05-23] MEDS ORDERED: SERT50TA PO (20:00)
[2017-05-23] MEDS ORDERED: FLUT16H NASAL (20:00)
[2017-05-23] MEDS ORDERED: ASPI-555 PO (20:00)
[2017-05-23] MEDS ORDERED: PREG50 PO (20:00)
[2017-05-23] MEDS ORDERED: LISI10TA7 PO (20:00)
[2017-05-23] MEDS ORDERED: MECL-129 PO (20:00)
[2017-05-23] MEDS ORDERED: ERGO500014 PO (20:00)
[2017-05-23] MEDS ORDERED: BENZ-17 PO (20:00)
[2017-05-23] MEDS ORDERED: MEGE20TA PO (20:00)
[2017-05-23] MEDS ORDERED: ESOM40CA PO (20:00)
[2017-05-24 03:00] VITALS: BP 158/86
[2017-05-24] MEDS: MEROPENEM 1 GM VIAL IVP SCH (05:00)
[2017-05-24] MEDS: INSULIN R PO SSI SQ SCH ×2 (06:51→11:30)
[2017-05-24 08:10] VITALS: BP 185/95
[2017-05-24] MEDS: CLOPIDOGREL BISULFATE 75 MG TAB PO SCH (09:31)
[2017-05-24] MEDS: LEVOTHYROXINE 25 MCG TABLET PO SCH (09:32)
[2017-05-24] MEDS: MELOXICAM 7.5 MG TABLET PO SCH (09:32)
[2017-05-24] MEDS: GEMFIBROZIL 600 MG TABLET PO SCH (09:32)
[2017-05-24] MEDS: GABAPENTIN 300 MG CAPSULE PO SCH (09:32)
[2017-05-24] MEDS: METFORMIN HCL 500 MG TABLET PO SCH (09:32)
[2017-05-24] MEDS: ATORVASTATIN CALCIUM 20 MG TABLET PO SCH (09:32)
[2017-05-24] MEDS: FAMOTIDINE 20MG TAB 20 MG TAB PO SCH (09:32)
[2017-05-24] MEDS: ENOXAPARIN SODIUM 40 MG/0.4 ML SYRINGE SQ SCH (09:33)
[2017-05-24] MEDS: ACETAMINOPHEN-CODEINE 300/30MG TAB PO PRN ×3 (09:33→11:57)
[2017-05-24] MEDS: CADEXOMER IODINE 40 GM GEL TP SCH (09:38)
[2017-05-24 11:57] VITALS: BP 192/94
[2017-05-24] MEDS: CLONIDINE HCL 0.1 MG TABLET PO PRN (11:57)
== END 2017-05-24 12:40 | DRG 920 ==
LOC: EDH 12:05 → EDHIP 12:19 → 3BH 18:18
PROVIDERS: ADMIT Family Medicine; ATTEND Family Medicine
DX: T81.30XA Disruption of wound, unspecified, initial encounter (principal); L03.116 Cellulitis of left lower limb; E11.42 Type 2 diabetes mellitus with diabetic polyneuropathy; E11.51 Type 2 diabetes mellitus with diabetic peripheral angiopathy without gangrene; E11.621 Type 2 diabetes mellitus with foot ulcer; E11.69 Type 2 diabetes mellitus with other specified complication; Z89.419 Acquired absence of unspecified great toe; L97.529 Non-pressure chronic ulcer of other part of left foot with unspecified severity; E03.9 Hypothyroidism, unspecified; E78.5 Hyperlipidemia, unspecified; I10 Essential (primary) hypertension; M19.90 Unspecified osteoarthritis, unspecified site; Z89.412 Acquired absence of left great toe; Z98.49 Cataract extraction status, unspecified eye
CPT/HCPCS: 36415; 73630; 73718; 80048; 80053; 80202; 82948; 85025; 85027; 87040; 87070; 87076; 87106; 93925; 94664; A4218; J1650; J1815; J2185; J3370

== ENCOUNTER 2017-08-12 17:14 | Emergency (ER) | payer MEDICARE ==
[~2017-08-12 17:14] MED LIST changes: +ADV250 IH; -AEC81 PO; +AMLO5TAB4 PO; +ASPI-555 PO; +BENZ-17 PO; +ERGO500014 PO; +ESOM40CA PO; +FLUT16H NASAL; +LISI10TA7 PO; +MECL-129 PO; +MEGE20TA PO; +MELO-106 PO; -PANT40TA PO; +PREG50 PO; +SERT50TA PO
[2017-08-12 17:58] LABS: BASOPHILS % (AUTO) 0.5 % (0.0-5.0); EOSINOPHILS % (AUTO) 5.8 % (0.0-8.0); HEMATOCRIT 30.7 % (42-54); LYMPHOCYTES % (AUTO) 16.1 % (21.0-51.0); MEAN CORPUSCULAR HEMOGLOBIN 29.9 pg (27.0-33.0); MEAN CORPUSCULAR HGB CONC 34.1 g/dL (32.0-36.0); MEAN CORPUSCULAR VOLUME 87.8 fL (79-99); MONOCYTES % (AUTO) 8.8 % (3.0-13.0); NEUTROPHILS % (AUTO) 68.8 % (40.0-77.0); PLATELET COUNT (AUTO) 340 K/uL (130-400); RED BLOOD CELL COUNT(AUTO) 3.49 MIL/uL (4.50-6.20); RED CELL DISTRIBUTION WIDTH 16.3 % (11.0-15.5); WHITE BLOOD COUNT (AUTO) 8.6 K/uL (4.8-10.8)
[2017-08-12 18:08] LABS: CREATININE 1.3 mg/dL (0.5-1.5); CRP QUANTITATIVE 14.9 mg/L (0.00-9.0); POTASSIUM 3.7 mmol/L (3.5-5.1)
[2017-08-12] MEDS ORDERED: METRONIDAZOLE 500MG/100ML BAG 100 ML ONE (18:31)
[2017-08-12] MEDS ORDERED: LEVOFLOXACIN 500 MG TABLET ONE (18:31)
[2017-08-12] MEDS ORDERED: TRAMADOL HCL 50 MG TABLET ONE (18:33)
[2017-08-12 19:04] LABS: ERYTHROCYTE SEDIMENTATION RATE 29 MM/HR (0-15)
[2017-08-12] MEDS ORDERED: CLONIDINE HCL 0.1 MG TABLET ONE (19:47)
== END 2017-08-12 20:45 | disposition home or self-care (01) ==
LOC: EDH 17:14
DX: E11.621 Type 2 diabetes mellitus with foot ulcer (principal); L97.528 Non-pressure chronic ulcer of other part of left foot with other specified severity; E11.9 Type 2 diabetes mellitus without complications; E78.5 Hyperlipidemia, unspecified; I10 Essential (primary) hypertension; E07.9 Disorder of thyroid, unspecified; M19.90 Unspecified osteoarthritis, unspecified site; Z89.422 Acquired absence of other left toe(s)
CPT/HCPCS: 36415; 73620; 80048; 85025; 85651; 86140; 87040; 96365; 99285; J3490

== ENCOUNTER 2017-08-16 22:22 | Emergency (ER) | payer MEDICARE ==
[2017-08-16] MEDS ORDERED: KETOROLAC TROMETHAMINE 30MG/ML ONE (23:11)
== END 2017-08-16 23:44 | disposition home or self-care (01) ==
LOC: EDH 22:22
DX: G89.18 Other acute postprocedural pain (principal); M79.672 Pain in left foot; E11.9 Type 2 diabetes mellitus without complications; M19.90 Unspecified osteoarthritis, unspecified site; E78.5 Hyperlipidemia, unspecified; I10 Essential (primary) hypertension; E07.9 Disorder of thyroid, unspecified; Z98.890 Other specified postprocedural states
CPT/HCPCS: 96372; 99283; J1885

== ENCOUNTER 2017-09-24 20:26 | Inpatient (IN) | payer MEDICARE ==
[~2017-09-24] VITALS: Ht 162.6 cm; Wt 57.7 kg
[~2017-09-24 20:26] MED LIST changes: -ADV250 IH; -AMLO5TAB4 PO; -ASPI-555 PO; -BENZ-17 PO; -ERGO500014 PO; -ESOM40CA PO; -FLUT16H NASAL; -GEMF600T3 PO; +GEMF600T4 PO; -LISI10TA7 PO; -MECL-129 PO; -MEGE20TA PO; +METF-446 PO; -METF10004 PO; -PREG50 PO; -SERT50TA PO
[2017-09-24 20:59] LABS: BASOPHILS % (AUTO) 0.2 % (0.0-5.0); EOSINOPHILS % (AUTO) 2.2 % (0.0-8.0); HEMATOCRIT 21.7 % (42-54); LYMPHOCYTES % (AUTO) 22.8 % (21.0-51.0); MEAN CORPUSCULAR HEMOGLOBIN 29.3 pg (27.0-33.0); MEAN CORPUSCULAR HGB CONC 32.7 g/dL (32.0-36.0); MEAN CORPUSCULAR VOLUME 89.9 fL (79-99); MONOCYTES % (AUTO) 8.6 % (3.0-13.0); NEUTROPHILS % (AUTO) 66.2 % (40.0-77.0); PLATELET COUNT (AUTO) 142 K/uL (130-400); RED BLOOD CELL COUNT(AUTO) 2.41 MIL/uL (4.50-6.20); RED CELL DISTRIBUTION WIDTH 14.8 % (11.0-15.5); WHITE BLOOD COUNT (AUTO) 5.8 K/uL (4.8-10.8)
[2017-09-24 21:21] LABS: B-TYPE NATRIURETIC PEPTIDE 114 pg/mL (0-100)
[2017-09-24 21:31] LABS: ALANINE AMINOTRANSFERASE 19 U/L (12-78); ALBUMIN 2.8 g/dL (3.5-5.0); ASPARTATE AMINOTRANSFERASE 16 U/L (10-37); BILIRUBIN,TOTAL 0.2 mg/dL (0.2-1.0); CARBON DIOXIDE 18 mmol/L (21-32); CHLORIDE 97 mmol/L (101-111); CREATINE KINASE MB 1.1 ng/mL (0.5-3.6); CREATINE KINASE, TOTAL 69 U/L (21-232); CREATININE 2.6 mg/dL (0.5-1.5); GLOMERULAR FILTR. RATE CALC 26 mL/min (>60); GLUCOSE,RANDOM 139 mg/dL (70-105); LIPASE 117 U/L (114-286); MYOGLOBIN 208 ng/mL (10-92); SODIUM SERUM 128 mmol/L (136-145); TOTAL PROTEIN, SERUM 6.4 g/dL (6.0-8.3); TROPONIN I < 0.04 ng/mL (0.00-0.06); UREA NITROGEN, BLOOD 25 mg/dL (7-18)
[2017-09-24 21:38] LABS: POTASSIUM 6.2 mmol/L (3.5-5.1)
[2017-09-24 21:51] LABS: APPEARANCE,URINE Clear (CLEAR); BILIRUBIN,URINE Negative (NEGATIVE); COLOR,URINE Dark Yellow (YELLOW); GLUCOSE, URINE (UA) Negative (NEGATIVE); KETONES,URINE Trace mg/dL (NEGATIVE); LEUKOCYTE ESTERASE ,URINE Trace (NEGATIVE); NITRATE,URINE Negative (NEGATIVE); OCCULT BLOOD,URINE Negative (NEGATIVE); PROTEIN,URINE Trace (NEGATIVE)
[2017-09-24 21:59] LABS: AMPHET/METH SCREEN,URINE NEGATIVE (NEGATIVE); BARBITURATE SCREEN, URINE NEGATIVE (NEGATIVE); BENZODIAZEPINES SCREEN,URINE NEGATIVE (NEGATIVE); CANNABINOID SCREEN,URINE NEGATIVE (NEGATIVE); COCAINE SCREEN,URINE NEGATIVE (NEGATIVE); OPIATE SCREEN,URINE POSITIVE (NEGATIVE); PHENCYCLIDINE SCREEN,URINE NEGATIVE (NEGATIVE)
[2017-09-24 22:00] LABS: RAPID GROUP A STREP NEGATIVE (NEGATIVE)
[2017-09-24 22:07] LABS: INR 0.97 (0.85-1.15); PARTIAL THROMBOPLASTIN TIME 30.6 SEC (26.3-35.5); PROTHROMBIN TIME 10.2 SEC (9.6-11.6)
[2017-09-24 22:17] LABS: RBC,URINE 0-1 /HPF (0-1)
[2017-09-24 22:18] LABS: BACTERIA,URINE Few /HPF (None Seen); SQUAMOUS EPITHELIAL CELL,UR Rare /HPF (0-2); TRANSITIONAL EPI CELLS,URINE Rare /HPF (None Seen)
[2017-09-24] MEDS ORDERED: SODIUM POLYSTYRENE SULFONATE 15 GM/60 ML ML ONE (22:20)
[2017-09-24] MEDS ORDERED: CALCIUM GLUCONATE 1 GM/10 ML VIAL IV ONE (22:21)
[2017-09-24] MEDS ORDERED: SODIUM BICARB 50MEQ 50ML VIAL ONE (22:21)
[2017-09-24] MEDS ORDERED: DEXTROSE 50%-WATER 50 ML DISP.SYRIN IV ONE (22:21)
[2017-09-24 22:22] LABS: ABG BASE EXCESS -11.1 mmol/L (-2.0-3.0); ABG HCO3 13.9 mmol/L (21.0-28.0); ABG OXYGEN SATURATION 95.2 % (95.0-99.0); ABG PCO2 29 mmHg (35-48)
[2017-09-24] MEDS ORDERED: INSULIN HUMULIN R 100 UNIT/ML 3ML ONE (22:22)
[2017-09-24] MEDS ORDERED: SODIUM CHLORIDE 0.9% 100 ML IV ONE (22:23)
[2017-09-24] MEDS ORDERED: ALBUTEROL SULFATE 0.083% 2.5 MG/3 ML INH IH ONE (23:54)
[2017-09-25 02:00] VITALS: BP 124/57
[2017-09-25] MEDS ORDERED: GLUCAGON 1MG KIT 1 MG ML IM PRN (02:15)
[2017-09-25] MEDS ORDERED: DEXTROSE 50%-WATER 50 ML DISP.SYRIN IV PRN (02:15)
[2017-09-25] MEDS: SODIUM CHLORIDE 0.9% 1000ML 1,000 ML IV SCH ×3 (02:45→23:46)
[2017-09-25 03:21] VITALS: BP 127/53
[2017-09-25] MEDS ORDERED: METO-391 PO (03:48)
[2017-09-25] MEDS ORDERED: LEVO500T89 PO (03:48)
[2017-09-25] MEDS ORDERED: METR500P18 IV (03:48)
[2017-09-25] MEDS ORDERED: AMLO10TA6 PO (03:48)
[2017-09-25] MEDS ORDERED: PANT40TA25 PO (03:48)
[2017-09-25] MEDS ORDERED: ACET1TAB25 PO (03:48)
[2017-09-25] MEDS ORDERED: LOSA25TA16 PO (03:48)
[2017-09-25 05:58] LABS: BASOPHILS % (AUTO) 0.4 % (0.0-5.0); EOSINOPHILS % (AUTO) 3.7 % (0.0-8.0); HEMATOCRIT 27.2 % (42-54); LYMPHOCYTES % (AUTO) 31.6 % (21.0-51.0); MEAN CORPUSCULAR HEMOGLOBIN 30.6 pg (27.0-33.0); MONOCYTES % (AUTO) 12.5 % (3.0-13.0); NEUTROPHILS % (AUTO) 51.8 % (40.0-77.0); PLATELET COUNT (AUTO) 108 K/uL (130-400); RED BLOOD CELL COUNT(AUTO) 3.02 MIL/uL (4.50-6.20); WHITE BLOOD COUNT (AUTO) 5.1 K/uL (4.8-10.8)
[2017-09-25 06:14] LABS: ALBUMIN 2.4 g/dL (3.5-5.0); BILIRUBIN,TOTAL 0.4 mg/dL (0.2-1.0); CREATININE 1.9 mg/dL (0.5-1.5); TOTAL PROTEIN, SERUM 5.7 g/dL (6.0-8.3)
[2017-09-25] MEDS: INSULIN HUMULIN R 100 UNIT/ML 3ML SQ SCH ×4 (07:21→21:00)
[2017-09-25 07:47] VITALS: BP 141/62
[2017-09-25] MEDS: LEVOFLOXACIN 250 MG/D5W 50ML 50 ML IV SCH (08:50)
[2017-09-25 11:53] VITALS: BP 140/67
[2017-09-25] MEDS: ACETAMINOPHEN ELIXIR 650 MG/20.3 ML UDCUP PEG PRN (12:00)
[2017-09-25] MEDS: OSELTAMIVIR PHOSPHATE 75 MG CAP PO SCH (13:48)
[2017-09-25 14:20] LABS: CREATININE 1.5 mg/dL (0.5-1.5)
[2017-09-25 16:43] VITALS: BP 138/67
[2017-09-25] MEDS: LOPERAMIDE HCL 2 MG CAP PO PRN (17:10)
[2017-09-25 20:19] VITALS: BP 136/68
[2017-09-25] MEDS: ACETAMINOPHEN-CODEINE 300/30MG TAB PO PRN (20:46)
[2017-09-26] VITALS (11 sets, daily range): BP systolic 138–188; BP diastolic 62–95
[2017-09-26 04:23] LABS: HEMATOCRIT 28.4 % (42-54); MEAN CORPUSCULAR HEMOGLOBIN 30.4 pg (27.0-33.0); MEAN CORPUSCULAR HGB CONC 34.2 g/dL (32.0-36.0); MEAN CORPUSCULAR VOLUME 88.8 fL (79-99); PLATELET COUNT (AUTO) 116 K/uL (130-400); RED CELL DISTRIBUTION WIDTH 14.3 % (11.0-15.5); WHITE BLOOD COUNT (AUTO) 7.2 K/uL (4.8-10.8)
[2017-09-26] MEDS: ACETAMINOPHEN-CODEINE 300/30MG TAB PO PRN ×3 (04:37→16:20)
[2017-09-26 04:41] LABS: CREATININE 0.8 mg/dL (0.5-1.5); PHOSPHORUS 2.3 mg/dL (2.5-4.9); POTASSIUM 4.1 mmol/L (3.5-5.1)
[2017-09-26 04:45] LABS: % IRON SATURATION 22.5 % (30-44)
[2017-09-26 05:05] LABS: BAND NEUTROPHILS % (MANUAL) 6 % (0-2); EOSINOPHILS % (MANUAL) 4 % (1-6); LYMPHOCYTES % (MANUAL) 16 % (22-44); MAN.DIFF COMMENT-IMPRESSION MANUAL DIFFERENTIAL; MONOCYTES % (MANUAL) 5 % (2-9); PLATELET MORPHOLOGY COMMENT SLIGHTLY DECREASED; REACTIVE LYMPHOCYTES 3 % (0-0); SEGMENTED NEUTROPHILS % 66 % (40-70)
[2017-09-26] MEDS: INSULIN HUMULIN R 100 UNIT/ML 3ML SQ SCH ×4 (07:30→21:00)
[2017-09-26] MEDS: OSELTAMIVIR PHOSPHATE 75 MG CAP PO SCH (08:48)
[2017-09-26] MEDS: LEVOFLOXACIN 250 MG/D5W 50ML 50 ML IV SCH (08:48)
[2017-09-26] MEDS ORDERED: CLOP75TA14 PO (09:17)
[2017-09-26] MEDS ORDERED: COMPOUND IV MISC 1 EACH IVSOLN MISC PRN (10:15)
[2017-09-26] MEDS: SODIUM CHLORIDE 0.9% 1000ML 1,000 ML IV SCH ×2 (11:53→18:45)
[2017-09-26] MEDS: MORPHINE SULFATE 2 MG/ML 1ML SYG IVP PRN ×2 (14:05→22:06)
[2017-09-26] MEDS ORDERED: MORPHINE SULFATE 4 MG/1ML SYG IM PRN (16:00)
[2017-09-26] MEDS: MELOXICAM 7.5 MG TABLET PO SCH (16:19)
[2017-09-26] MEDS: LOSARTAN 50 MG TABLET PO SCH (16:20)
[2017-09-26] MEDS ORDERED: ONDANSETRON HCL MDV 20ML 2 MG/ML VIAL ONE (16:47)
[2017-09-26] MEDS: HOME MEDICATION 1 EACH PO SCH ×2 (16:51→21:00)
[2017-09-26] MEDS ORDERED: VANCOMYCIN PROTOCOL PER PHARMACY IV SCH (17:45)
[2017-09-26] MEDS: VANCOMYCIN 1GM+NS 250ML 250 ML IV SCH (18:55)
[2017-09-26] MEDS ORDERED: Metoprolol Succinate 50 MG PO SCH (21:00)
[2017-09-26] MEDS: CLONIDINE HCL 0.2 MG TABLET PO SCH (21:00)
[2017-09-26] MEDS ORDERED: CLONIDINE HCL 0.1 MG TABLET ONE (21:43)
[2017-09-26] MEDS: GEMFIBROZIL 600 MG TABLET PO SCH (21:45)
[2017-09-26] MEDS: ZOSYN 3.375GM+NS 50ML 50 ML IV SCH (21:45)
[2017-09-26] MEDS: GABAPENTIN 300 MG CAPSULE PO SCH (21:46)
[2017-09-26] MEDS: METFORMIN HCL 500 MG TABLET PO SCH (21:46)
[2017-09-26] MEDS ORDERED: NITROGLYCERIN 0.4 MG SL TAB SL ONE (22:28)
[2017-09-26] MEDS ORDERED: NITROGLYCERIN 0.4 MG SL TAB SL PRN (22:30)
[2017-09-26 23:16] LABS: CREATINE KINASE MB 3.5 ng/mL (0.5-3.6); CREATINE KINASE, TOTAL 197 U/L (21-232); MYOGLOBIN 264 ng/mL (10-92); TROPONIN I < 0.04 ng/mL (0.00-0.06)
[2017-09-27] VITALS (18 sets, daily range): BP systolic 103–163; BP diastolic 43–83
[2017-09-27] MEDS: ONDANSETRON HCL MDV 20ML 2 MG/ML VIAL IVP PRN ×2 (00:07→13:55)
[2017-09-27] MEDS: MORPHINE SULFATE 2 MG/ML 1ML SYG IVP PRN (01:53)
[2017-09-27] MEDS: ACETAMINOPHEN-CODEINE 300/30MG TAB PO PRN (03:08)
[2017-09-27 04:08] LABS: HEMATOCRIT 26.5 % (42-54); MEAN CORPUSCULAR HEMOGLOBIN 31.2 pg (27.0-33.0); MEAN CORPUSCULAR HGB CONC 35.5 g/dL (32.0-36.0); MEAN CORPUSCULAR VOLUME 87.8 fL (79-99); PLATELET COUNT (AUTO) 139 K/uL (130-400); RED BLOOD CELL COUNT(AUTO) 3.02 MIL/uL (4.50-6.20); WHITE BLOOD COUNT (AUTO) 12.9 K/uL (4.8-10.8)
[2017-09-27 04:14] LABS: CREATININE 1.1 mg/dL (0.5-1.5); POTASSIUM 3.7 mmol/L (3.5-5.1)
[2017-09-27] MEDS: SODIUM CHLORIDE 0.9% 1000ML 1,000 ML IV SCH ×2 (04:45→14:17)
[2017-09-27] MEDS: ZOSYN 3.375GM+NS 50ML 50 ML IV SCH ×3 (05:04→20:15)
[2017-09-27 05:16] LABS: BAND NEUTROPHILS % (MANUAL) 9 % (0-2); BASOPHILS % (MANUAL) 1 % (0-2); EOSINOPHILS % (MANUAL) 1 % (1-6); LYMPHOCYTES % (MANUAL) 18 % (22-44); MAN.DIFF COMMENT-IMPRESSION MANUAL DIFFERENTIAL; MONOCYTES % (MANUAL) 11 % (2-9); PLATELET MORPHOLOGY COMMENT ADEQUATE; SEGMENTED NEUTROPHILS % 60 % (40-70)
[2017-09-27] MEDS: INSULIN HUMULIN R 100 UNIT/ML 3ML SQ SCH ×4 (07:21→20:38)
[2017-09-27] MEDS: OSELTAMIVIR PHOSPHATE 75 MG CAP PO SCH (08:26)
[2017-09-27] MEDS: GABAPENTIN 300 MG CAPSULE PO SCH ×2 (08:26→20:16)
[2017-09-27] MEDS: AMLODIPINE BESYLATE 5 MG TAB PO SCH (08:26)
[2017-09-27] MEDS: GEMFIBROZIL 600 MG TABLET PO SCH ×2 (08:26→20:17)
[2017-09-27] MEDS: LEVOTHYROXINE 25 MCG TABLET PO SCH (08:26)
[2017-09-27] MEDS: CLOPIDOGREL BISULFATE 75 MG TAB PO SCH (08:27)
[2017-09-27] MEDS: ATORVASTATIN CALCIUM 20 MG TABLET PO SCH (08:27)
[2017-09-27] MEDS: PANTOPRAZOLE SODIUM 40 MG TABLET.DR PO SCH (08:27)
[2017-09-27] MEDS: MELOXICAM 7.5 MG TABLET PO SCH (08:27)
[2017-09-27] MEDS: LOSARTAN 50 MG TABLET PO SCH (08:27)
[2017-09-27] MEDS: IRON SUCROSE COMPLEX 100 MG in SODIUM CHLORIDE 0.9% 50 ML IV SCH (08:30)
[2017-09-27] MEDS: VANCOMYCIN 1GM+NS 250ML 250 ML IV SCH ×2 (08:47→20:16)
[2017-09-27] MEDS: LEVOFLOXACIN 250 MG/D5W 50ML 50 ML IV SCH ×2 (09:00→11:03)
[2017-09-27] MEDS ORDERED: LOSARTAN 50 MG TABLET PO SCH (09:00)
[2017-09-27] MEDS: CLONIDINE HCL 0.2 MG TABLET PO SCH ×2 (09:00→20:17)
[2017-09-27] MEDS ORDERED: AMLODIPINE BESYLATE 5 MG TAB PO SCH (09:00)
[2017-09-27] MEDS: METFORMIN HCL 500 MG TABLET PO SCH ×2 (09:00→20:25)
[2017-09-27] MEDS ORDERED: MELOXICAM 7.5 MG TABLET PO SCH (09:00)
[2017-09-27] MEDS: HOME MEDICATION 1 EACH PO SCH ×2 (11:09→20:17)
[2017-09-27] MEDS ORDERED: METO50TA18 PO (11:10)
[2017-09-28] MEDS: MORPHINE SULFATE 2 MG/ML 1ML SYG IVP PRN (00:28)
[2017-09-28] MEDS: SODIUM CHLORIDE 0.9% 1000ML 1,000 ML IV SCH ×3 (00:28→20:50)
[2017-09-28] MEDS: ACETAMINOPHEN ELIXIR 650 MG/20.3 ML UDCUP PEG PRN (03:15)
[2017-09-28 04:00] VITALS: BP 111/56
[2017-09-28] MEDS: ZOSYN 3.375GM+NS 50ML 50 ML IV SCH ×3 (04:02→20:49)
[2017-09-28] MEDS: INSULIN HUMULIN R 100 UNIT/ML 3ML SQ SCH ×4 (04:04→20:43)
[2017-09-28 07:00] VITALS: BP 149/47
[2017-09-28] MEDS: VANCOMYCIN 1GM+NS 250ML 250 ML IV SCH ×3 (09:00→20:50)
[2017-09-28] MEDS: ACETAMINOPHEN-CODEINE 300/30MG TAB PO PRN ×2 (09:50→11:36)
[2017-09-28] MEDS: IRON SUCROSE COMPLEX 100 MG in SODIUM CHLORIDE 0.9% 50 ML IV SCH (09:51)
[2017-09-28] MEDS: OSELTAMIVIR PHOSPHATE 75 MG CAP PO SCH (09:51)
[2017-09-28] MEDS: AMLODIPINE BESYLATE 5 MG TAB PO SCH (09:51)
[2017-09-28] MEDS: CLONIDINE HCL 0.2 MG TABLET PO SCH ×2 (09:51→20:48)
[2017-09-28] MEDS: PANTOPRAZOLE SODIUM 40 MG TABLET.DR PO SCH (09:52)
[2017-09-28] MEDS: CLOPIDOGREL BISULFATE 75 MG TAB PO SCH (09:52)
[2017-09-28] MEDS: ATORVASTATIN CALCIUM 20 MG TABLET PO SCH (09:52)
[2017-09-28] MEDS: LEVOTHYROXINE 25 MCG TABLET PO SCH (09:52)
[2017-09-28] MEDS: GEMFIBROZIL 600 MG TABLET PO SCH ×2 (09:52→20:47)
[2017-09-28] MEDS: GABAPENTIN 300 MG CAPSULE PO SCH ×2 (09:52→20:47)
[2017-09-28] MEDS: MELOXICAM 7.5 MG TABLET PO SCH (09:52)
[2017-09-28] MEDS: LEVOFLOXACIN 250 MG/D5W 50ML 50 ML IV SCH (09:53)
[2017-09-28] MEDS: METFORMIN HCL 500 MG TABLET PO SCH ×2 (09:53→20:46)
[2017-09-28] MEDS: LOSARTAN 50 MG TABLET PO SCH (09:53)
[2017-09-28] MEDS: HOME MEDICATION 1 EACH PO SCH ×2 (10:27→20:51)
[2017-09-28 11:00] VITALS: BP 117/55
[2017-09-28 16:00] VITALS: BP 100/54
[2017-09-28 19:40] VITALS: BP 107/57
[2017-09-28 23:26] VITALS: BP 108/53
[2017-09-29] MEDS: ACETAMINOPHEN-CODEINE 300/30MG TAB PO PRN ×2 (00:45→21:49)
[2017-09-29] MEDS: LOPERAMIDE HCL 2 MG CAP PO PRN (00:45)
[2017-09-29 03:48] VITALS: BP 106/58
[2017-09-29] MEDS: ZOSYN 3.375GM+NS 50ML 50 ML IV SCH ×3 (04:41→21:49)
[2017-09-29] MEDS: SODIUM CHLORIDE 0.9% 1000ML 1,000 ML IV SCH ×2 (05:43→16:44)
[2017-09-29] MEDS: INSULIN HUMULIN R 100 UNIT/ML 3ML SQ SCH ×4 (05:51→20:37)
[2017-09-29 07:00] VITALS: BP 98/57
[2017-09-29] MEDS: PANTOPRAZOLE SODIUM 40 MG TABLET.DR PO SCH (08:33)
[2017-09-29] MEDS: VANCOMYCIN 1GM+NS 250ML 250 ML IV SCH ×2 (08:33→20:36)
[2017-09-29] MEDS: GABAPENTIN 300 MG CAPSULE PO SCH ×2 (08:34→20:37)
[2017-09-29] MEDS: AMLODIPINE BESYLATE 5 MG TAB PO SCH (08:34)
[2017-09-29] MEDS: METFORMIN HCL 500 MG TABLET PO SCH (08:34)
[2017-09-29] MEDS: OSELTAMIVIR PHOSPHATE 75 MG CAP PO SCH (08:34)
[2017-09-29] MEDS: LEVOTHYROXINE 25 MCG TABLET PO SCH (08:34)
[2017-09-29] MEDS: CLOPIDOGREL BISULFATE 75 MG TAB PO SCH (08:34)
[2017-09-29] MEDS: LOSARTAN 50 MG TABLET PO SCH (08:34)
[2017-09-29] MEDS: GEMFIBROZIL 600 MG TABLET PO SCH ×2 (08:34→20:37)
[2017-09-29] MEDS: ATORVASTATIN CALCIUM 20 MG TABLET PO SCH (08:34)
[2017-09-29] MEDS: CLONIDINE HCL 0.2 MG TABLET PO SCH (09:00)
[2017-09-29] MEDS: HOME MEDICATION 1 EACH PO SCH ×2 (09:00→20:36)
[2017-09-29] MEDS: IRON SUCROSE COMPLEX 100 MG in SODIUM CHLORIDE 0.9% 50 ML IV SCH (09:05)
[2017-09-29 11:00] VITALS: BP 112/59
[2017-09-29] MEDS: LEVOFLOXACIN 250 MG/D5W 50ML 50 ML IV SCH (11:00)
[2017-09-29] MEDS: MELOXICAM 7.5 MG TABLET PO SCH (13:05)
[2017-09-29 16:00] VITALS: BP 106/59
[2017-09-29 19:48] VITALS: BP 111/54
[2017-09-29] MEDS ORDERED: MAG HYDROX/AL HYDROX/SIMETH ES 30 ML SUSP UDCUP PO PRN (20:30)
[2017-09-29] MEDS: ONDANSETRON HCL MDV 20ML 2 MG/ML VIAL IVP PRN (21:49)
[2017-09-29 23:33] VITALS: BP 144/50
[2017-09-30] MEDS: SODIUM CHLORIDE 0.9% 1000ML 1,000 ML IV SCH ×3 (02:45→20:50)
[2017-09-30 03:29] LABS: HEMATOCRIT 22.9 % (42-54); MEAN CORPUSCULAR HEMOGLOBIN 29.6 pg (27.0-33.0); MEAN CORPUSCULAR HGB CONC 33.3 g/dL (32.0-36.0); MEAN CORPUSCULAR VOLUME 89.1 fL (79-99); PLATELET COUNT (AUTO) 216 K/uL (130-400); RED BLOOD CELL COUNT(AUTO) 2.56 MIL/uL (4.50-6.20); RED CELL DISTRIBUTION WIDTH 14.9 % (11.0-15.5); WHITE BLOOD COUNT (AUTO) 13.5 K/uL (4.8-10.8)
[2017-09-30 03:44] LABS: CREATININE 1.1 mg/dL (0.5-1.5); MAGNESIUM 0.6 mg/dL (1.80-2.40); POTASSIUM 3.5 mmol/L (3.5-5.1)
[2017-09-30 04:06] VITALS: BP 121/59
[2017-09-30] MEDS ORDERED: MAGNESIUM 2GM PREMIX 50ML 50 ML IV ONE (05:11)
[2017-09-30] MEDS: ZOSYN 3.375GM+NS 50ML 50 ML IV SCH ×3 (05:14→20:41)
[2017-09-30] MEDS ORDERED: POTASSIUM CHLORIDE 10MEQ/100ML 100 ML IV PRN (05:15)
[2017-09-30] MEDS ORDERED: MAGNESIUM 4GM PREMIX 100ML 100 ML IV ONE (05:15)
[2017-09-30] MEDS ORDERED: MAGNESIUM 2GM PREMIX 50ML 50 ML IV PRN (05:15)
[2017-09-30] MEDS ORDERED: LIDOCAINE HCL-MPF 1% 2ML VIAL IVP PRN (05:15)
[2017-09-30] MEDS ORDERED: POTASSIUM CHLORIDE 10 MEQ/TAB.SA PO ONE (05:50)
[2017-09-30] MEDS: INSULIN HUMULIN R 100 UNIT/ML 3ML SQ SCH ×4 (05:58→20:43)
[2017-09-30 07:00] VITALS: BP 143/67
[2017-09-30] MEDS: HOME MEDICATION 1 EACH PO SCH ×2 (09:00→20:50)
[2017-09-30] MEDS: LEVOFLOXACIN 250 MG/D5W 50ML 50 ML IV SCH (09:35)
[2017-09-30] MEDS: PANTOPRAZOLE SODIUM 40 MG TABLET.DR PO SCH (09:35)
[2017-09-30] MEDS: CLOPIDOGREL BISULFATE 75 MG TAB PO SCH (09:35)
[2017-09-30] MEDS: POLYETHYLENE GLYCOL 3350 17 GM POWD.PACK PO SCH (09:35)
[2017-09-30] MEDS: ATORVASTATIN CALCIUM 20 MG TABLET PO SCH (09:35)
[2017-09-30] MEDS: LOSARTAN 50 MG TABLET PO SCH (09:36)
[2017-09-30] MEDS: LEVOTHYROXINE 25 MCG TABLET PO SCH (09:36)
[2017-09-30] MEDS: GABAPENTIN 300 MG CAPSULE PO SCH ×2 (09:36→20:43)
[2017-09-30] MEDS: MELOXICAM 7.5 MG TABLET PO SCH (09:36)
[2017-09-30] MEDS: GEMFIBROZIL 600 MG TABLET PO SCH ×2 (09:36→20:42)
[2017-09-30] MEDS: OSELTAMIVIR PHOSPHATE 75 MG CAP PO SCH (09:36)
[2017-09-30] MEDS: AMLODIPINE BESYLATE 5 MG TAB PO SCH (09:37)
[2017-09-30] MEDS: IRON SUCROSE COMPLEX 100 MG in SODIUM CHLORIDE 0.9% 50 ML IV SCH (10:00)
[2017-09-30 11:00] VITALS: BP 134/69
[2017-09-30] MEDS: ACETAMINOPHEN-CODEINE 300/30MG TAB PO PRN (11:04)
[2017-09-30 16:00] VITALS: BP 116/61
[2017-09-30 20:02] VITALS: BP 140/60
[2017-09-30] MEDS: FLUCONAZOLE 200 MG/NS 100 ML 100 ML IV SCH (20:40)
[2017-09-30 23:59] VITALS: BP 126/68
[2017-10-01] VITALS (9 sets, daily range): BP systolic 119–158; BP diastolic 54–82
[2017-10-01] MEDS: ZOSYN 3.375GM+NS 50ML 50 ML IV SCH ×3 (06:02→21:40)
[2017-10-01] MEDS: INSULIN HUMULIN R 100 UNIT/ML 3ML SQ SCH ×4 (06:08→21:00)
[2017-10-01] MEDS: SODIUM CHLORIDE 0.9% 1000ML 1,000 ML IV SCH (08:45)
[2017-10-01] MEDS: MELOXICAM 7.5 MG TABLET PO SCH (09:52)
[2017-10-01] MEDS: LOSARTAN 50 MG TABLET PO SCH (09:52)
[2017-10-01] MEDS: GEMFIBROZIL 600 MG TABLET PO SCH ×2 (09:52→21:37)
[2017-10-01] MEDS: POLYETHYLENE GLYCOL 3350 17 GM POWD.PACK PO SCH (09:53)
[2017-10-01] MEDS: LEVOTHYROXINE 25 MCG TABLET PO SCH (09:54)
[2017-10-01] MEDS: AMLODIPINE BESYLATE 5 MG TAB PO SCH (09:54)
[2017-10-01] MEDS: ATORVASTATIN CALCIUM 20 MG TABLET PO SCH (09:54)
[2017-10-01] MEDS: PANTOPRAZOLE SODIUM 40 MG TABLET.DR PO SCH (09:54)
[2017-10-01] MEDS: GABAPENTIN 300 MG CAPSULE PO SCH ×2 (09:54→21:38)
[2017-10-01] MEDS: CLOPIDOGREL BISULFATE 75 MG TAB PO SCH (09:54)
[2017-10-01] MEDS: FLUCONAZOLE 200 MG/NS 100 ML 100 ML IV SCH (09:55)
[2017-10-01] MEDS: LEVOFLOXACIN 250 MG/D5W 50ML 50 ML IV SCH (09:55)
[2017-10-01] MEDS: HOME MEDICATION 1 EACH PO SCH (09:55)
[2017-10-01] MEDS: IRON SUCROSE COMPLEX 100 MG in SODIUM CHLORIDE 0.9% 50 ML IV SCH (09:55)
[2017-10-01] MEDS ORDERED: COMPOUND IV REFRIGERATED 1 EACH IVSOLN MISC PRN (12:00)
[2017-10-01] MEDS ORDERED: VANCOMYCIN 1.5 GM in SODIUM CHLORIDE 0.9% 250 ML IV SCH (14:00)
[2017-10-01] MEDS: ACETAMINOPHEN-CODEINE 300/30MG TAB PO PRN (14:42)
[2017-10-01 18:57] LABS: HEMATOCRIT 22.3 % (42-54)
[2017-10-01] MEDS ORDERED: FUROSEMIDE 10 MG/ML 4ML VIAL IV SCH (21:00)
[2017-10-01] MEDS ORDERED: SODIUM CHLORIDE 0.9% 250 ML IV ONE (21:03)
[2017-10-02] VITALS (9 sets, daily range): BP systolic 127–169; BP diastolic 69–98
[2017-10-02] MEDS: ZOSYN 3.375GM+NS 50ML 50 ML IV SCH ×3 (04:29→20:49)
[2017-10-02] MEDS: ONDANSETRON HCL MDV 20ML 2 MG/ML VIAL IVP PRN (04:45)
[2017-10-02 05:30] LABS: HEMATOCRIT 34.3 % (42-54); MEAN CORPUSCULAR HEMOGLOBIN 29.6 pg (27.0-33.0); MEAN CORPUSCULAR HGB CONC 33.5 g/dL (32.0-36.0); MEAN CORPUSCULAR VOLUME 88.3 fL (79-99); PLATELET COUNT (AUTO) 366 K/uL (130-400); RED BLOOD CELL COUNT(AUTO) 3.89 MIL/uL (4.50-6.20); RED CELL DISTRIBUTION WIDTH 14.8 % (11.0-15.5); WHITE BLOOD COUNT (AUTO) 11.9 K/uL (4.8-10.8)
[2017-10-02 05:38] LABS: INR 1.18 (0.85-1.15); PARTIAL THROMBOPLASTIN TIME 36.4 SEC (26.3-35.5); PROTHROMBIN TIME 12.4 SEC (9.6-11.6)
[2017-10-02] MEDS: INSULIN HUMULIN R 100 UNIT/ML 3ML SQ SCH ×4 (05:40→20:58)
[2017-10-02 05:43] LABS: ALBUMIN 2.1 g/dL (3.5-5.0); BILIRUBIN,TOTAL 1.1 mg/dL (0.2-1.0); POTASSIUM 3.7 mmol/L (3.5-5.1); TOTAL PROTEIN, SERUM 6.2 g/dL (6.0-8.3)
[2017-10-02] MEDS: POLYETHYLENE GLYCOL 3350 17 GM POWD.PACK PO SCH (08:38)
[2017-10-02] MEDS: AMLODIPINE BESYLATE 5 MG TAB PO SCH (08:38)
[2017-10-02] MEDS: PANTOPRAZOLE SODIUM 40 MG TABLET.DR PO SCH (08:38)
[2017-10-02] MEDS: VANCOMYCIN 500MG+NS 100ML 100 ML IV SCH ×2 (08:38→20:49)
[2017-10-02] MEDS: METOPROLOL TARTRATE 50 MG TAB PO SCH ×2 (08:39→20:48)
[2017-10-02] MEDS: GEMFIBROZIL 600 MG TABLET PO SCH ×2 (08:39→20:48)
[2017-10-02] MEDS: LEVOTHYROXINE 25 MCG TABLET PO SCH (08:39)
[2017-10-02] MEDS: GABAPENTIN 300 MG CAPSULE PO SCH ×2 (08:39→20:48)
[2017-10-02] MEDS: CLOPIDOGREL BISULFATE 75 MG TAB PO SCH (08:39)
[2017-10-02] MEDS: ATORVASTATIN CALCIUM 20 MG TABLET PO SCH (08:39)
[2017-10-02] MEDS: LOSARTAN 50 MG TABLET PO SCH (08:39)
[2017-10-02] MEDS: MELOXICAM 7.5 MG TABLET PO SCH (08:39)
[2017-10-02] MEDS: LEVOFLOXACIN 250 MG/D5W 50ML 50 ML IV SCH (08:39)
[2017-10-02] MEDS: IRON SUCROSE COMPLEX 100 MG in SODIUM CHLORIDE 0.9% 50 ML IV SCH (08:54)
[2017-10-02] MEDS ORDERED: METOLAZONE 2.5 MG TABLET ONE (09:30)
[2017-10-02] MEDS ORDERED: FUROSEMIDE 10 MG/ML 4ML VIAL ONE (09:30)
[2017-10-02] MEDS: FLUCONAZOLE 200 MG/NS 100 ML 100 ML IV SCH (09:34)
[2017-10-02] MEDS ORDERED: METOLAZONE 2.5 MG TABLET PO ONE (10:15)
[2017-10-02] MEDS ORDERED: POTASSIUM CHLORIDE 20 MEQ ERTAB PO ONE (10:15)
[2017-10-02] MEDS ORDERED: FUROSEMIDE 10 MG/ML 4ML VIAL IV ONE (10:15)
[2017-10-02] MEDS ORDERED: METHYLPREDNISOLONE SOD SUCC 40MG/ML 1ML ONE (10:42)
[2017-10-02] MEDS: METHYLPREDNISOLONE SOD SUCC 40MG/ML 1ML IVP SCH ×2 (10:45→22:09)
[2017-10-02 11:10] LABS: ABG BASE EXCESS -4.9 mmol/L (-2.0-3.0); ABG HCO3 16.9 mmol/L (21.0-28.0); ABG PCO2 24 mmHg (35-48)
[2017-10-02] MEDS: IPRATROPIUM/ALBUTEROL SULFATE 3 ML SOLUTION IH SCH ×4 (11:34→23:42)
[2017-10-02] MEDS: MAGNESIUM 2GM PREMIX 50ML 50 ML IV SCH (13:13)
[2017-10-02] MEDS ORDERED: FUROSEMIDE 10 MG/ML 2ML VIAL IV SCH (14:15)
[2017-10-02] MEDS: HEPARIN SODIUM 5000UNIT/ML 1ML VIAL SQ SCH (15:43)
[2017-10-02] MEDS ORDERED: SODIUM CHLORIDE 3% FOR INHALATION 4 ML/AMP VIAL.NEB IH ONE (20:33)
[2017-10-02] MEDS: FUROSEMIDE 10 MG/ML 2ML VIAL IV SCH (20:48)
[2017-10-03] VITALS (7 sets, daily range): BP systolic 125–161; BP diastolic 61–78
[2017-10-03] MEDS: HEPARIN SODIUM 5000UNIT/ML 1ML VIAL SQ SCH ×3 (01:50→21:17)
[2017-10-03 03:38] LABS: BASOPHILS % (AUTO) 0.1 % (0.0-5.0); HEMATOCRIT 31.6 % (42-54); LYMPHOCYTES % (AUTO) 4.4 % (21.0-51.0); MEAN CORPUSCULAR VOLUME 86.1 fL (79-99); MONOCYTES % (AUTO) 3.1 % (3.0-13.0); NEUTROPHILS % (AUTO) 92.4 % (40.0-77.0); PLATELET COUNT (AUTO) 337 K/uL (130-400); RED BLOOD CELL COUNT(AUTO) 3.67 MIL/uL (4.50-6.20); RED CELL DISTRIBUTION WIDTH 14.7 % (11.0-15.5); WHITE BLOOD COUNT (AUTO) 8.1 K/uL (4.8-10.8)
[2017-10-03 03:49] LABS: MAGNESIUM 1.1 mg/dL (1.80-2.40)
[2017-10-03 04:01] LABS: POTASSIUM 2.7 mmol/L (3.5-5.1)
[2017-10-03] MEDS ORDERED: POTASSIUM CHLORIDE 20MEQ/100ML 100 ML IV ONE (04:23)
[2017-10-03] MEDS: ZOSYN 3.375GM+NS 50ML 50 ML IV SCH ×3 (04:24→21:15)
[2017-10-03] MEDS: INSULIN HUMULIN R 100 UNIT/ML 3ML SQ SCH ×4 (06:08→21:00)
[2017-10-03] MEDS: IPRATROPIUM/ALBUTEROL SULFATE 3 ML SOLUTION IH SCH ×3 (06:36→18:01)
[2017-10-03] MEDS ORDERED: METOLAZONE 2.5 MG TABLET PO SCH (08:45)
[2017-10-03] MEDS: FUROSEMIDE 10 MG/ML 2ML VIAL IV SCH ×2 (09:00→21:15)
[2017-10-03] MEDS: LEVOFLOXACIN 250 MG/D5W 50ML 50 ML IV SCH (10:40)
[2017-10-03] MEDS: FLUCONAZOLE 200 MG/NS 100 ML 100 ML IV SCH (10:40)
[2017-10-03] MEDS: VANCOMYCIN 500MG+NS 100ML 100 ML IV SCH ×2 (10:40→21:15)
[2017-10-03] MEDS: IRON SUCROSE COMPLEX 100 MG in SODIUM CHLORIDE 0.9% 50 ML IV SCH (10:41)
[2017-10-03] MEDS: ATORVASTATIN CALCIUM 20 MG TABLET PO SCH (14:29)
[2017-10-03] MEDS: GEMFIBROZIL 600 MG TABLET PO SCH ×2 (14:30→21:15)
[2017-10-03] MEDS: AMLODIPINE BESYLATE 5 MG TAB PO SCH (14:30)
[2017-10-03] MEDS: LEVOTHYROXINE 25 MCG TABLET PO SCH (14:30)
[2017-10-03] MEDS: GABAPENTIN 300 MG CAPSULE PO SCH ×2 (14:32→21:16)
[2017-10-03] MEDS: PANTOPRAZOLE SODIUM 40 MG TABLET.DR PO SCH (14:32)
[2017-10-03] MEDS: LOSARTAN 50 MG TABLET PO SCH (14:33)
[2017-10-03] MEDS: METOPROLOL TARTRATE 50 MG TAB PO SCH ×2 (14:33→21:15)
[2017-10-03] MEDS: POLYETHYLENE GLYCOL 3350 17 GM POWD.PACK PO SCH (14:34)
[2017-10-03] MEDS: POTASSIUM CHLORIDE 10% ELIXIR 20 MEQ/15 ML UDCUP PO PRN ×3 (14:40→17:50)
[2017-10-03] MEDS ORDERED: SODIUM CHLORIDE 3% FOR INHALATION 4 ML/AMP VIAL.NEB IH ONE (16:15)
[2017-10-04] MEDS: IPRATROPIUM/ALBUTEROL SULFATE 3 ML SOLUTION IH SCH ×4 (00:52→18:00)
[2017-10-04] MEDS ORDERED: SODIUM CHLORIDE 3% FOR INHALATION 4 ML/AMP VIAL.NEB IH ONE ×2 (00:59→05:53)
[2017-10-04] MEDS: ACETAMINOPHEN-CODEINE 300/30MG TAB PO PRN (02:20)
[2017-10-04 04:01] LABS: CREATININE 1.1 mg/dL (0.5-1.5); MAGNESIUM 0.8 mg/dL (1.80-2.40)
[2017-10-04 04:07] VITALS: BP 156/74
[2017-10-04] MEDS: ZOSYN 3.375GM+NS 50ML 50 ML IV SCH ×3 (05:47→21:40)
[2017-10-04] MEDS: INSULIN HUMULIN R 100 UNIT/ML 3ML SQ SCH ×4 (06:50→21:00)
[2017-10-04 07:32] VITALS: BP 120/59
[2017-10-04] MEDS: LEVOFLOXACIN 250 MG/D5W 50ML 50 ML IV SCH (08:19)
[2017-10-04] MEDS: POLYETHYLENE GLYCOL 3350 17 GM POWD.PACK PO SCH (09:51)
[2017-10-04] MEDS: IRON SUCROSE COMPLEX 100 MG in SODIUM CHLORIDE 0.9% 50 ML IV SCH (09:51)
[2017-10-04] MEDS: LEVOTHYROXINE 25 MCG TABLET PO SCH (09:52)
[2017-10-04] MEDS: ATORVASTATIN CALCIUM 20 MG TABLET PO SCH (09:52)
[2017-10-04] MEDS: FLUCONAZOLE 200 MG/NS 100 ML 100 ML IV SCH (09:52)
[2017-10-04] MEDS: GEMFIBROZIL 600 MG TABLET PO SCH ×2 (09:52→21:44)
[2017-10-04] MEDS: FUROSEMIDE 10 MG/ML 2ML VIAL IV SCH ×2 (09:52→21:42)
[2017-10-04] MEDS: AMLODIPINE BESYLATE 5 MG TAB PO SCH (09:53)
[2017-10-04] MEDS: LOSARTAN 50 MG TABLET PO SCH (09:53)
[2017-10-04] MEDS: METOPROLOL TARTRATE 50 MG TAB PO SCH ×2 (09:53→21:44)
[2017-10-04] MEDS: PANTOPRAZOLE SODIUM 40 MG TABLET.DR PO SCH (09:54)
[2017-10-04] MEDS: POTASSIUM CHLORIDE 20 MEQ ERTAB PO PRN ×3 (09:54→16:24)
[2017-10-04] MEDS: GABAPENTIN 300 MG CAPSULE PO SCH ×2 (09:54→21:44)
[2017-10-04] MEDS: HEPARIN SODIUM 5000UNIT/ML 1ML VIAL SQ SCH ×2 (10:01→21:43)
[2017-10-04] MEDS: VANCOMYCIN 500MG+NS 100ML 100 ML IV SCH ×2 (12:05→21:38)
[2017-10-04 12:07] VITALS: BP 141/65
[2017-10-04] MEDS: MAGNESIUM 2GM PREMIX 50ML 50 ML IV SCH ×2 (13:07→14:16)
[2017-10-04] MEDS ORDERED: ONDANSETRON HCL MDV 20ML 2 MG/ML VIAL IVP PRN (14:15)
[2017-10-04 16:11] VITALS: BP 141/65
[2017-10-04 18:51] LABS: MAGNESIUM 2.4 mg/dL (1.80-2.40); POTASSIUM 3.4 mmol/L (3.5-5.1)
[2017-10-04 19:55] VITALS: BP 131/74
[2017-10-04] MEDS: MAGNESIUM OXIDE 400 MG TABLET PO SCH (21:44)
[2017-10-04] MEDS: POTASSIUM CHLORIDE 20 MEQ ERTAB PO SCH (21:44)
[2017-10-05] VITALS (7 sets, daily range): BP systolic 122–138; BP diastolic 65–78
[2017-10-05] MEDS: IPRATROPIUM/ALBUTEROL SULFATE 3 ML SOLUTION IH SCH ×5 (00:12→23:38)
[2017-10-05 03:58] LABS: HEMATOCRIT 36.1 % (42-54); MEAN CORPUSCULAR HEMOGLOBIN 30.2 pg (27.0-33.0); MEAN CORPUSCULAR HGB CONC 34.9 g/dL (32.0-36.0); MEAN CORPUSCULAR VOLUME 86.5 fL (79-99); NUCLEATED RED BLOOD CELLS 0.1 % (0.0-0.19); PLATELET COUNT (AUTO) 435 K/uL (130-400); RED BLOOD CELL COUNT(AUTO) 4.17 MIL/uL (4.50-6.20); RED CELL DISTRIBUTION WIDTH 14.9 % (11.0-15.5); WHITE BLOOD COUNT (AUTO) 6.2 K/uL (4.8-10.8)
[2017-10-05 04:06] LABS: CREATININE 1.1 mg/dL (0.5-1.5); MAGNESIUM 1.7 mg/dL (1.80-2.40); PHOSPHORUS 3.4 mg/dL (2.5-4.9); POTASSIUM 3.6 mmol/L (3.5-5.1)
[2017-10-05] MEDS: ZOSYN 3.375GM+NS 50ML 50 ML IV SCH ×3 (05:57→20:14)
[2017-10-05] MEDS: POTASSIUM CHLORIDE 20 MEQ ERTAB PO PRN (05:59)
[2017-10-05] MEDS: INSULIN HUMULIN R 100 UNIT/ML 3ML SQ SCH ×4 (06:03→21:39)
[2017-10-05] MEDS: POLYETHYLENE GLYCOL 3350 17 GM POWD.PACK PO SCH (09:00)
[2017-10-05] MEDS: LEVOFLOXACIN 250 MG/D5W 50ML 50 ML IV SCH (09:13)
[2017-10-05] MEDS: FLUCONAZOLE 200 MG/NS 100 ML 100 ML IV SCH (09:13)
[2017-10-05] MEDS: IRON SUCROSE COMPLEX 100 MG in SODIUM CHLORIDE 0.9% 50 ML IV SCH (09:14)
[2017-10-05] MEDS: VANCOMYCIN 500MG+NS 100ML 100 ML IV SCH ×2 (09:14→20:15)
[2017-10-05] MEDS: AMLODIPINE BESYLATE 5 MG TAB PO SCH (09:15)
[2017-10-05] MEDS: FUROSEMIDE 10 MG/ML 2ML VIAL IV SCH ×2 (09:15→20:21)
[2017-10-05] MEDS: LOSARTAN 50 MG TABLET PO SCH (09:15)
[2017-10-05] MEDS: FOLIC ACID/VITAMIN B COMP W-C 1 MG CAPSULE PO SCH (09:15)
[2017-10-05] MEDS: METOPROLOL TARTRATE 50 MG TAB PO SCH ×2 (09:16→20:22)
[2017-10-05] MEDS: GEMFIBROZIL 600 MG TABLET PO SCH ×2 (09:16→20:21)
[2017-10-05] MEDS: LEVOTHYROXINE 25 MCG TABLET PO SCH (09:16)
[2017-10-05] MEDS: ATORVASTATIN CALCIUM 20 MG TABLET PO SCH (09:17)
[2017-10-05] MEDS: GABAPENTIN 300 MG CAPSULE PO SCH ×2 (09:17→20:21)
[2017-10-05] MEDS: MAGNESIUM OXIDE 400 MG TABLET PO SCH ×2 (09:17→20:22)
[2017-10-05] MEDS: PANTOPRAZOLE SODIUM 40 MG TABLET.DR PO SCH (09:17)
[2017-10-05] MEDS: POTASSIUM CHLORIDE 20 MEQ ERTAB PO SCH ×2 (09:18→20:22)
[2017-10-05] MEDS: HEPARIN SODIUM 5000UNIT/ML 1ML VIAL SQ SCH ×2 (10:07→20:23)
[2017-10-05] MEDS: ACETAMINOPHEN-CODEINE 300/30MG TAB PO PRN (23:22)
[2017-10-06 03:00] VITALS: BP 132/69
[2017-10-06 04:05] LABS: HEMATOCRIT 35.3 % (42-54); MEAN CORPUSCULAR HEMOGLOBIN 30.3 pg (27.0-33.0); MEAN CORPUSCULAR HGB CONC 34.6 g/dL (32.0-36.0); MEAN CORPUSCULAR VOLUME 87.5 fL (79-99); PLATELET COUNT (AUTO) 394 K/uL (130-400); RED BLOOD CELL COUNT(AUTO) 4.03 MIL/uL (4.50-6.20); RED CELL DISTRIBUTION WIDTH 14.9 % (11.0-15.5); WHITE BLOOD COUNT (AUTO) 8.7 K/uL (4.8-10.8)
[2017-10-06 04:14] LABS: CREATININE 1.4 mg/dL (0.5-1.5); MAGNESIUM 1.7 mg/dL (1.80-2.40); POTASSIUM 4.1 mmol/L (3.5-5.1)
[2017-10-06 04:17] LABS: BAND NEUTROPHILS % (MANUAL) 1 % (0-2); LYMPHOCYTES % (MANUAL) 18 % (22-44); MONOCYTES % (MANUAL) 1 % (2-9); SEGMENTED NEUTROPHILS % 80 % (40-70)
[2017-10-06 04:18] LABS: MAN.DIFF COMMENT-IMPRESSION MANUAL DIFFERENTIAL; PLATELET MORPHOLOGY COMMENT ADEQUATE
[2017-10-06] MEDS: ZOSYN 3.375GM+NS 50ML 50 ML IV SCH ×3 (05:36→20:58)
[2017-10-06] MEDS: INSULIN HUMULIN R 100 UNIT/ML 3ML SQ SCH ×4 (05:56→21:00)
[2017-10-06] MEDS: IPRATROPIUM/ALBUTEROL SULFATE 3 ML SOLUTION IH SCH ×4 (06:16→23:27)
[2017-10-06 07:46] VITALS: BP 143/77
[2017-10-06] MEDS: METOPROLOL TARTRATE 50 MG TAB PO SCH ×2 (09:00→20:58)
[2017-10-06] MEDS: GABAPENTIN 300 MG CAPSULE PO SCH ×2 (09:00→20:58)
[2017-10-06] MEDS: AMLODIPINE BESYLATE 5 MG TAB PO SCH (09:00)
[2017-10-06] MEDS: LEVOTHYROXINE 25 MCG TABLET PO SCH (09:00)
[2017-10-06] MEDS: FOLIC ACID/VITAMIN B COMP W-C 1 MG CAPSULE PO SCH (09:00)
[2017-10-06] MEDS: HEPARIN SODIUM 5000UNIT/ML 1ML VIAL SQ SCH ×2 (09:00→21:10)
[2017-10-06] MEDS: MAGNESIUM OXIDE 400 MG TABLET PO SCH ×2 (09:00→20:58)
[2017-10-06] MEDS: POLYETHYLENE GLYCOL 3350 17 GM POWD.PACK PO SCH (09:00)
[2017-10-06] MEDS: GEMFIBROZIL 600 MG TABLET PO SCH ×2 (09:00→20:57)
[2017-10-06] MEDS: POTASSIUM CHLORIDE 20 MEQ ERTAB PO SCH ×2 (09:00→20:58)
[2017-10-06] MEDS: PANTOPRAZOLE SODIUM 40 MG TABLET.DR PO SCH (09:00)
[2017-10-06] MEDS: LOSARTAN 50 MG TABLET PO SCH (09:00)
[2017-10-06] MEDS: ATORVASTATIN CALCIUM 20 MG TABLET PO SCH (09:00)
[2017-10-06] MEDS: VANCOMYCIN 500MG+NS 100ML 100 ML IV SCH ×2 (09:04→20:58)
[2017-10-06] MEDS: IRON SUCROSE COMPLEX 100 MG in SODIUM CHLORIDE 0.9% 50 ML IV SCH (09:04)
[2017-10-06] MEDS: FUROSEMIDE 10 MG/ML 2ML VIAL IV SCH ×2 (09:05→20:59)
[2017-10-06] MEDS: LEVOFLOXACIN 250 MG/D5W 50ML 50 ML IV SCH (09:05)
[2017-10-06] MEDS: FLUCONAZOLE 200 MG/NS 100 ML 100 ML IV SCH (09:05)
[2017-10-06 09:10] LABS: INR 1.05 (0.85-1.15); PARTIAL THROMBOPLASTIN TIME 29.4 SEC (26.3-35.5)
[2017-10-06 11:26] VITALS: BP 145/79
[2017-10-06] MEDS: ACETAMINOPHEN-CODEINE 300/30MG TAB PO PRN (11:54)
[2017-10-06 16:00] VITALS: BP 119/68
[2017-10-06 19:46] VITALS: BP 129/75
[2017-10-07] VITALS (22 sets, daily range): BP systolic 101–143; BP diastolic 59–77
[2017-10-07 03:24] LABS: BASOPHILS % (AUTO) 0.3 % (0.0-5.0); EOSINOPHILS % (AUTO) 2.4 % (0.0-8.0); HEMATOCRIT 37.1 % (42-54); LYMPHOCYTES % (AUTO) 12.1 % (21.0-51.0); MEAN CORPUSCULAR HEMOGLOBIN 30.7 pg (27.0-33.0); MEAN CORPUSCULAR HGB CONC 34.5 g/dL (32.0-36.0); MEAN CORPUSCULAR VOLUME 88.8 fL (79-99); MONOCYTES % (AUTO) 5.6 % (3.0-13.0); NEUTROPHILS % (AUTO) 79.6 % (40.0-77.0); PLATELET COUNT (AUTO) 383 K/uL (130-400); RED BLOOD CELL COUNT(AUTO) 4.17 MIL/uL (4.50-6.20); RED CELL DISTRIBUTION WIDTH 14.6 % (11.0-15.5); WHITE BLOOD COUNT (AUTO) 11.3 K/uL (4.8-10.8)
[2017-10-07 03:33] LABS: CREATININE 1.5 mg/dL (0.5-1.5); POTASSIUM 4.1 mmol/L (3.5-5.1)
[2017-10-07 03:44] LABS: INR 1.05 (0.85-1.15); PARTIAL THROMBOPLASTIN TIME 31.1 SEC (26.3-35.5)
[2017-10-07] MEDS: ZOSYN 3.375GM+NS 50ML 50 ML IV SCH ×4 (04:33→20:58)
[2017-10-07] MEDS: INSULIN HUMULIN R 100 UNIT/ML 3ML SQ SCH ×4 (05:21→21:00)
[2017-10-07] MEDS: IPRATROPIUM/ALBUTEROL SULFATE 3 ML SOLUTION IH SCH ×4 (05:54→23:23)
[2017-10-07] MEDS: VANCOMYCIN 500MG+NS 100ML 100 ML IV SCH ×2 (09:00→17:20)
[2017-10-07] MEDS: LEVOTHYROXINE 25 MCG TABLET PO SCH (09:00)
[2017-10-07] MEDS: HEPARIN SODIUM 5000UNIT/ML 1ML VIAL SQ SCH ×2 (09:00→19:10)
[2017-10-07] MEDS: METOPROLOL TARTRATE 50 MG TAB PO SCH ×2 (09:00→20:59)
[2017-10-07] MEDS: AMLODIPINE BESYLATE 5 MG TAB PO SCH (09:00)
[2017-10-07] MEDS ORDERED: COMPOUND IV REFRIGERATED 1 EACH IVSOLN MISC PRN (10:15)
[2017-10-07] MEDS ORDERED: SODIUM CHLORIDE 0.9% 1000ML 1,000 ML IV ONE (11:39)
[2017-10-07] MEDS ORDERED: ROPIVACAINE 0.5% 5MG/ML 30ML IJ ONE (12:38)
[2017-10-07] MEDS ORDERED: FENTANYL CITRATE PF 50 MCG/1 ML 2ML VIAL ONE (12:44)
[2017-10-07] MEDS ORDERED: MIDAZOLAM HCL 1 MG/ML 2ML VIAL ONE (12:44)
[2017-10-07] MEDS ORDERED: PROPOFOL 10 MG/ML 20ML VIAL IV ONE (12:44)
[2017-10-07] MEDS ORDERED: NEOMY SULF/POLYMYXIN B SULFATE 1 ML AMPUL IR ONE (13:45)
[2017-10-07] MEDS ORDERED: NEOMY SULF/BACITRAC ZN/POLY OINT 30GM TUBE TP ONE (13:58)
[2017-10-07] MEDS ORDERED: MEPERIDINE-PF 25 MG/ML SYG ONE (14:33)
[2017-10-07] MEDS: LEVOFLOXACIN 250 MG/D5W 50ML 50 ML IV SCH (16:30)
[2017-10-07] MEDS: FUROSEMIDE 10 MG/ML 2ML VIAL IV SCH ×2 (16:30→17:20)
[2017-10-07] MEDS: POLYETHYLENE GLYCOL 3350 17 GM POWD.PACK PO SCH ×2 (16:32→17:15)
[2017-10-07] MEDS: GABAPENTIN 300 MG CAPSULE PO SCH ×2 (16:33→17:22)
[2017-10-07] MEDS: PANTOPRAZOLE SODIUM 40 MG TABLET.DR PO SCH (16:33)
[2017-10-07] MEDS: GEMFIBROZIL 600 MG TABLET PO SCH ×2 (16:33→17:21)
[2017-10-07] MEDS: ATORVASTATIN CALCIUM 20 MG TABLET PO SCH (16:33)
[2017-10-07] MEDS: LOSARTAN 50 MG TABLET PO SCH (16:34)
[2017-10-07] MEDS: MAGNESIUM OXIDE 400 MG TABLET PO SCH ×2 (16:34→17:22)
[2017-10-07] MEDS: FOLIC ACID/VITAMIN B COMP W-C 1 MG CAPSULE PO SCH (16:35)
[2017-10-07] MEDS: POTASSIUM CHLORIDE 20 MEQ ERTAB PO SCH ×2 (16:45→17:21)
[2017-10-07] MEDS: FLUCONAZOLE 200 MG/NS 100 ML 100 ML IV SCH (16:58)
[2017-10-07] MEDS: IRON SUCROSE COMPLEX 100 MG in SODIUM CHLORIDE 0.9% 50 ML IV SCH (20:58)
[2017-10-08] VITALS (8 sets, daily range): BP systolic 87–132; BP diastolic 51–76
[2017-10-08] MEDS: ZOSYN 3.375GM+NS 50ML 50 ML IV SCH ×3 (04:25→21:07)
[2017-10-08] MEDS: INSULIN HUMULIN R 100 UNIT/ML 3ML SQ SCH ×4 (05:41→21:03)
[2017-10-08] MEDS: IPRATROPIUM/ALBUTEROL SULFATE 3 ML SOLUTION IH SCH ×4 (05:49→23:32)
[2017-10-08] MEDS: LEVOTHYROXINE 25 MCG TABLET PO SCH (06:18)
[2017-10-08] MEDS: VANCOMYCIN 500MG+NS 100ML 100 ML IV SCH ×2 (07:38→21:00)
[2017-10-08] MEDS: POLYETHYLENE GLYCOL 3350 17 GM POWD.PACK PO SCH (09:00)
[2017-10-08] MEDS: FOLIC ACID/VITAMIN B COMP W-C 1 MG CAPSULE PO SCH (10:23)
[2017-10-08] MEDS: FLUCONAZOLE 200 MG/NS 100 ML 100 ML IV SCH (10:23)
[2017-10-08] MEDS: FUROSEMIDE 10 MG/ML 2ML VIAL IV SCH ×2 (10:23→21:07)
[2017-10-08] MEDS: LEVOFLOXACIN 250 MG/D5W 50ML 50 ML IV SCH (10:23)
[2017-10-08] MEDS: LOSARTAN 50 MG TABLET PO SCH (10:24)
[2017-10-08] MEDS: GEMFIBROZIL 600 MG TABLET PO SCH ×2 (10:24→21:05)
[2017-10-08] MEDS: MAGNESIUM OXIDE 400 MG TABLET PO SCH ×2 (10:24→21:05)
[2017-10-08] MEDS: AMLODIPINE BESYLATE 5 MG TAB PO SCH (10:24)
[2017-10-08] MEDS: METOPROLOL TARTRATE 50 MG TAB PO SCH ×2 (10:24→21:06)
[2017-10-08] MEDS: GABAPENTIN 300 MG CAPSULE PO SCH ×2 (10:24→21:05)
[2017-10-08] MEDS: POTASSIUM CHLORIDE 20 MEQ ERTAB PO SCH ×2 (10:25→21:06)
[2017-10-08] MEDS: ATORVASTATIN CALCIUM 20 MG TABLET PO SCH (10:25)
[2017-10-08] MEDS: PANTOPRAZOLE SODIUM 40 MG TABLET.DR PO SCH (10:25)
[2017-10-08] MEDS: HEPARIN SODIUM 5000UNIT/ML 1ML VIAL SQ SCH ×2 (11:05→21:17)
[2017-10-08] MEDS: VANCOMYCIN 750MG + NS 250 ML IV SCH ×2 (11:44)
[2017-10-08] MEDS: IRON SUCROSE COMPLEX 100 MG in SODIUM CHLORIDE 0.9% 50 ML IV SCH (11:44)
[2017-10-08 12:07] LABS: HEMATOCRIT 27.6 % (42-54); MEAN CORPUSCULAR HEMOGLOBIN 30.1 pg (27.0-33.0); MEAN CORPUSCULAR HGB CONC 33.3 g/dL (32.0-36.0); MEAN CORPUSCULAR VOLUME 90.3 fL (79-99); PLATELET COUNT (AUTO) 291 K/uL (130-400); RED BLOOD CELL COUNT(AUTO) 3.06 MIL/uL (4.50-6.20); RED CELL DISTRIBUTION WIDTH 14.8 % (11.0-15.5); WHITE BLOOD COUNT (AUTO) 15.7 K/uL (4.8-10.8)
[2017-10-08 12:15] LABS: CREATININE 1.6 mg/dL (0.5-1.5); POTASSIUM 3.9 mmol/L (3.5-5.1)
[2017-10-08] MEDS ORDERED: SODIUM CHLORIDE 0.9% 100 ML IV ONE (20:34)
[2017-10-08] MEDS: ONDANSETRON HCL MDV 20ML 2 MG/ML VIAL IVP PRN (22:16)
[2017-10-08] MEDS: ACETAMINOPHEN-CODEINE 300/30MG TAB PO PRN (22:17)
[2017-10-09 03:38] LABS: CREATININE 1.7 mg/dL (0.5-1.5); POTASSIUM 4.2 mmol/L (3.5-5.1)
[2017-10-09 03:50] LABS: HEMATOCRIT 24.3 % (42-54); MEAN CORPUSCULAR HEMOGLOBIN 30.5 pg (27.0-33.0); MEAN CORPUSCULAR HGB CONC 34.2 g/dL (32.0-36.0); MEAN CORPUSCULAR VOLUME 89.3 fL (79-99); PLATELET COUNT (AUTO) 284 K/uL (130-400); RED BLOOD CELL COUNT(AUTO) 2.72 MIL/uL (4.50-6.20); RED CELL DISTRIBUTION WIDTH 15.2 % (11.0-15.5); WHITE BLOOD COUNT (AUTO) 13.9 K/uL (4.8-10.8)
[2017-10-09 04:11] VITALS: BP 140/67
[2017-10-09] MEDS: ZOSYN 3.375GM+NS 50ML 50 ML IV SCH ×2 (04:36→13:34)
[2017-10-09] MEDS: INSULIN HUMULIN R 100 UNIT/ML 3ML SQ SCH ×3 (05:39→17:24)
[2017-10-09] MEDS: LEVOTHYROXINE 25 MCG TABLET PO SCH (05:40)
[2017-10-09] MEDS: IPRATROPIUM/ALBUTEROL SULFATE 3 ML SOLUTION IH SCH ×3 (05:59→18:29)
[2017-10-09 08:02] VITALS: BP 135/70
[2017-10-09] MEDS: POLYETHYLENE GLYCOL 3350 17 GM POWD.PACK PO SCH (09:00)
[2017-10-09] MEDS: VANCOMYCIN 500MG+NS 100ML 100 ML IV SCH (09:00)
[2017-10-09] MEDS: FUROSEMIDE 10 MG/ML 2ML VIAL IV SCH ×2 (09:00→09:16)
[2017-10-09] MEDS: FOLIC ACID/VITAMIN B COMP W-C 1 MG CAPSULE PO SCH (09:14)
[2017-10-09] MEDS: LOSARTAN 50 MG TABLET PO SCH (09:14)
[2017-10-09] MEDS: POTASSIUM CHLORIDE 20 MEQ ERTAB PO SCH (09:14)
[2017-10-09] MEDS: ATORVASTATIN CALCIUM 20 MG TABLET PO SCH (09:14)
[2017-10-09] MEDS: MAGNESIUM OXIDE 400 MG TABLET PO SCH (09:15)
[2017-10-09] MEDS: PANTOPRAZOLE SODIUM 40 MG TABLET.DR PO SCH (09:15)
[2017-10-09] MEDS: AMLODIPINE BESYLATE 5 MG TAB PO SCH (09:15)
[2017-10-09] MEDS: GABAPENTIN 300 MG CAPSULE PO SCH (09:15)
[2017-10-09] MEDS: GEMFIBROZIL 600 MG TABLET PO SCH (09:15)
[2017-10-09] MEDS: METOPROLOL TARTRATE 50 MG TAB PO SCH (09:16)
[2017-10-09] MEDS: VANCOMYCIN 750MG + NS 250 ML IV SCH ×2 (09:17)
[2017-10-09] MEDS: HEPARIN SODIUM 5000UNIT/ML 1ML VIAL SQ SCH (09:25)
[2017-10-09] MEDS: ACETAMINOPHEN-CODEINE 300/30MG TAB PO PRN (11:14)
[2017-10-09 11:33] VITALS: BP 131/65
[2017-10-09 16:00] VITALS: BP 104/59
[2017-10-09] MEDS ORDERED: QUETIAPINE FUMARATE 25 MG TAB PO SCH (21:00)
== END 2017-10-09 18:46 | DRG 474 ==
LOC: EDH 20:26 → EDHIP 09-25 00:17 → 2AH 09-25 01:54 → 2CH 09-26 17:45 → 2DH 09-27 15:45
PROVIDERS: ADMIT Family Medicine; ATTEND Family Medicine
PROC: 30233N1 Transfusion of Nonautologous Red Blood Cells into Peripheral Vein, Percutaneous Approach (ICD-10-PCS; 2017-09-25)
PROC: 02HV33Z Insertion of Infusion Device into Superior Vena Cava, Percutaneous Approach (ICD-10-PCS; 2017-09-27)
PROC: B548ZZA Ultrasonography of Superior Vena Cava, Guidance (ICD-10-PCS; 2017-09-27)
PROC: 5A09357 Assistance with Respiratory Ventilation, Less than 24 Consecutive Hours, Continuous Positive Airway Pressure (ICD-10-PCS; 2017-10-03)
PROC: 0Y6J0Z3 Detachment at Left Lower Leg, Low, Open Approach (ICD-10-PCS; principal; 2017-10-07 12:42)
DX: T87.44 Infection of amputation stump, left lower extremity (principal); A41.9 Sepsis, unspecified organism; J96.01 Acute respiratory failure with hypoxia; J96.02 Acute respiratory failure with hypercapnia; J12.9 Viral pneumonia, unspecified; G92 Toxic encephalopathy; J11.08 Influenza due to unidentified influenza virus with specified pneumonia; N17.9 Acute kidney failure, unspecified; M86.9 Osteomyelitis, unspecified; E11.52 Type 2 diabetes mellitus with diabetic peripheral angiopathy with gangrene; E46 Unspecified protein-calorie malnutrition; E87.2 Acidosis; I13.0 Hypertensive heart and chronic kidney disease with heart failure and stage 1 through stage 4 chronic kidney disease, or unspecified chronic kidney disease; I50.22 Chronic systolic (congestive) heart failure; E87.1 Hypo-osmolality and hyponatremia; E87.5 Hyperkalemia; E86.0 Dehydration; D64.9 Anemia, unspecified; Y83.5 Amputation of limb(s) as the cause of abnormal reaction of the patient, or of later complication, without mention of misadventure at the time of the procedure; E11.69 Type 2 diabetes mellitus with other specified complication; E11.42 Type 2 diabetes mellitus with diabetic polyneuropathy; M19.90 Unspecified osteoarthritis, unspecified site; E78.5 Hyperlipidemia, unspecified; D89.9 Disorder involving the immune mechanism, unspecified; E03.9 Hypothyroidism, unspecified; E11.22 Type 2 diabetes mellitus with diabetic chronic kidney disease; E11.621 Type 2 diabetes mellitus with foot ulcer; E78.00 Pure hypercholesterolemia, unspecified; E83.42 Hypomagnesemia; E87.6 Hypokalemia; G89.29 Other chronic pain; I35.0 Nonrheumatic aortic (valve) stenosis; I34.0 Nonrheumatic mitral (valve) insufficiency; I25.10 Atherosclerotic heart disease of native coronary artery without angina pectoris; K80.20 Calculus of gallbladder without cholecystitis without obstruction; L97.529 Non-pressure chronic ulcer of other part of left foot with unspecified severity; N18.9 Chronic kidney disease, unspecified; Z74.01 Bed confinement status; Z82.49 Family history of ischemic heart disease and other diseases of the circulatory system; Z83.3 Family history of diabetes mellitus; Z87.891 Personal history of nicotine dependence; Z89.411 Acquired absence of right great toe; Z89.412 Acquired absence of left great toe; Z79.84 Long term (current) use of oral hypoglycemic drugs; Z79.02 Long term (current) use of antithrombotics/antiplatelets; Z79.899 Other long term (current) drug therapy; Z68.21 Body mass index [BMI] 21.0-21.9, adult
CPT/HCPCS: 36415; 36430; 36600; 70450; 71045; 71250; 74176; 80048; 80053; 80202; 80305; 81001; 82270; 82550; 82553; 82803; 82948; 83540; 83550; 83605; 83690; 83735; 83874; 83880; 84100; 84132; 84484; 85014; 85018; 85025; 85027; 85610; 85730; 86334; 86850; 86900; 86901; 86922; 87040; 87070; 87076; 87077; 87088; 87507; 87804; 87880; 88307; 88311; 93005; 93306; 94640; 94660; 94664; 97039; 99291; A4344; C1894; J0610; J1450; J1644; J1756; J1815; J1940; J1956; J2175; J2250; J2543; J2704; J2795; J2920; J3010; J3370; J3475; J3480; J3490; J7030; J7070; P9016

== ENCOUNTER 2018-11-30 15:00 | Inpatient (IN) | payer MEDICARE ==
[~2018-11-30 15:00] MED LIST changes: +ACET1TAB25 PO; +AMLO10TA7 PO; +CLOP75TA14 PO; -CLOP75TA32 PO; -GEMF600T4 PO; +GEMF600T5 PO; +LEVO500T89 PO; +LOSA25TA41 PO; +METO50TA18 PO; +METR500P18 IV; +PANT40TA25 PO
[2018-11-30] MEDS ORDERED: ASPIRIN 325MG EC TAB 325 MG TABLET.DR PO ONE (16:30)
[2018-11-30 16:47] LABS: EOSINOPHILS % (AUTO) 3.4 % (0.0-8.0); HEMATOCRIT 39.7 % (42-54); LYMPHOCYTES % (AUTO) 16.3 % (21.0-51.0); MEAN CORPUSCULAR HEMOGLOBIN 32.9 pg (27.0-33.0); MEAN CORPUSCULAR HGB CONC 34.4 g/dL (32.0-36.0); MEAN CORPUSCULAR VOLUME 95.8 fL (79-99); NEUTROPHILS % (AUTO) 69.3 % (40.0-77.0); PLATELET COUNT (AUTO) 242 K/uL (130-400); RED BLOOD CELL COUNT(AUTO) 4.14 MIL/uL (4.50-6.20); RED CELL DISTRIBUTION WIDTH 12.8 % (11.0-15.5)
[2018-11-30 16:58] LABS: CARBON DIOXIDE 20 mmol/L (21-32); CHLORIDE 103 mmol/L (101-111); CREATININE 1.4 mg/dL (0.5-1.5); GLOMERULAR FILTR. RATE CALC 53 mL/min (>60); GLUCOSE,RANDOM 251 mg/dL (70-105); POTASSIUM 5.1 mmol/L (3.5-5.1); SODIUM SERUM 136 mmol/L (136-145); UREA NITROGEN, BLOOD 28 mg/dL (7-18)
[2018-11-30 17:00] LABS: INR 0.93 (0.85-1.15); PARTIAL THROMBOPLASTIN TIME 24.5 SEC (26.3-35.5); PROTHROMBIN TIME 9.8 SEC (9.6-11.6)
[2018-11-30 17:02] LABS: ALANINE AMINOTRANSFERASE 35 U/L (12-78); ALBUMIN 3.9 g/dL (3.5-5.0); ALCOHOL, BLOOD < 3 mg/dL (0-10); AMMONIA 15 umol/L (11-32); ASPARTATE AMINOTRANSFERASE 21 U/L (10-37); BILIRUBIN,TOTAL 0.3 mg/dL (0.2-1.0); CREATINE KINASE, TOTAL 67 U/L (21-232); TOTAL PROTEIN, SERUM 7.3 g/dL (6.0-8.3)
[2018-11-30 17:03] LABS: ACETAMINOPHEN < 1 mcg/mL (10-29); SALICYLATE < 2.8 mg/dL (2.8-20.0)
[2018-11-30] MEDS: SODIUM CHLORIDE 0.9% 1000ML 1,000 ML IV SCH (23:54)
[2018-12-01] MEDS ORDERED: MORPHINE SULFATE 2 MG/ML 1ML SYG IV PRN
[2018-12-01] MEDS ORDERED: ONDANSETRON HCL 4 MG/2 ML VIAL IV PRN
[2018-12-01] MEDS ORDERED: NITROGLYCERIN 0.4 MG SL TAB SL PRN
[2018-12-01] MEDS ORDERED: ACETAMINOPHEN 325 MG TAB PO PRN ×2
[2018-12-01] MEDS ORDERED: SODIUM CHLORIDE 0.9% 1000ML 1,000 ML IV ONE (00:59)
[2018-12-01] MEDS ORDERED: HYDRALAZINE HCL 20 MG/ML VIAL ONE (02:50)
[2018-12-01] MEDS ORDERED: HYDRALAZINE HCL 20 MG/ML VIAL IV PRN (03:00)
[2018-12-01 04:17] VITALS: BP 161/81
[2018-12-01 08:04] LABS: HEMOGLOBIN A1C 6.4 % (4.0-6.0)
[2018-12-01 08:09] LABS: CHOLESTEROL 164 mg/dL (<200); HDL CHOLESTEROL 30 mg/dL (29-71); LDL DIRECT 91 mg/dL (0-99); TRIGLYCERIDES 297 mg/dL (30-200)
[2018-12-01] MEDS ORDERED: FAMOTIDINE/PF 20 MG/2 ML VIAL IV SCH (09:00)
[2018-12-01] MEDS: METOPROLOL TARTRATE 25 MG TAB PO SCH ×2 (09:00→20:27)
[2018-12-01] MEDS: ENOXAPARIN SODIUM 30 MG/0.3 ML SQ SCH (09:00)
[2018-12-01] MEDS: SODIUM CHLORIDE 0.9% 1000ML 1,000 ML IV SCH ×2 (09:54→20:27)
[2018-12-01 10:50] VITALS: BP 194/90
[2018-12-01 11:30] LABS: ALBUMIN 3.9 g/dL (3.5-5.0); BILIRUBIN,TOTAL 0.4 mg/dL (0.2-1.0); CREATININE 1.3 mg/dL (0.5-1.5); POTASSIUM 4.1 mmol/L (3.5-5.1); TOTAL PROTEIN, SERUM 7.3 g/dL (6.0-8.3)
[2018-12-01] MEDS: INSULIN HUMULIN R 100 UNIT/ML 3ML SQ SCH ×3 (11:30→21:26)
[2018-12-01 11:34] LABS: HEMATOCRIT 40.2 % (42-54); NUCLEATED RED BLOOD CELLS 0.2 % (0.0-0.19); PLATELET COUNT (AUTO) 303 K/uL (130-400); RED BLOOD CELL COUNT(AUTO) 4.15 MIL/uL (4.50-6.20); RED CELL DISTRIBUTION WIDTH 13.2 % (11.0-15.5); WHITE BLOOD COUNT (AUTO) 6.7 K/uL (4.8-10.8)
[2018-12-01] MEDS ORDERED: ENOXAPARIN SODIUM 30 MG/0.3 ML SQ ONE (13:13)
[2018-12-01] MEDS ORDERED: FAMOTIDINE/PF 20 MG/2 ML VIAL IV ONE (13:13)
[2018-12-01] MEDS ORDERED: METOPROLOL TARTRATE 25 MG TAB ONE (13:13)
--- NOTE | 2018-12-01 14:00 | NUR ---
DCP: HOME met with pt and Stephanie Leo [phone]. Pt lives with who together with daily provider assists pt with ADLS, home management, meal prep and transportation. Pt has a borrowed electric w/c, no HH services. Tina Lemus is PCP, and he uses [facility] for rx. Plan is home at dc Addendum: 12/01/18 at 1409 by CHRISTINA MARLEY SS Amended: Links added.
[2018-12-01] MEDS ORDERED: FOLI1TAB61 PO (14:03)
[2018-12-01] MEDS ORDERED: NAPR500T6 PO (14:03)
[2018-12-01] MEDS ORDERED: NITR0.4T50 SL (14:03)
[2018-12-01] MEDS ORDERED: CITA10TA7 PO (14:03)
[2018-12-01 16:00] VITALS: BP 144/89
[2018-12-01 19:02] VITALS: BP 159/88
--- NOTE | 2018-12-01 20:07 | NUR ---
ASSESSMENT PATIENT IS RESTING IN CHAIR. ALERT AND ORIENTED X4. NO COMPLAINTS OF PAIN AT THIS TIME. NO SIGNS OF DISTRESS. NO SHORTNESS OF BREATH. CALL LIGHT AND BEDSIDE TABLE WITHIN REACH. FAMILY AT BEDSIDE. NO QUESTIONS, CONCERNS, OR NEEDS AT THIS TIME. REINFORCED TO CALL FOR ANY NEEDS.
[2018-12-01 23:11] VITALS: BP 175/84
--- NOTE | 2018-12-02 | NUR ---
ASSESSMENT PATIENT IS RESTING IN BED. FAMILY IS AT BEDSIDE. NO COMPLAINTS OF PAIN. NO SIGNS OF DISTRESS. NO SHORTNESS OF BREATH. CALL LIGHT WITHIN REACH. NO NEEDS AT THIS TIME.
[2018-12-02 03:24] VITALS: BP 189/94
[2018-12-02 03:54] LABS: BASOPHILS % (AUTO) 0.6 % (0.0-5.0); EOSINOPHILS % (AUTO) 4.5 % (0.0-8.0); HEMATOCRIT 39.2 % (42-54); LYMPHOCYTES % (AUTO) 23.1 % (21.0-51.0); MEAN CORPUSCULAR HEMOGLOBIN 32.9 pg (27.0-33.0); MEAN CORPUSCULAR HGB CONC 34.6 g/dL (32.0-36.0); MEAN CORPUSCULAR VOLUME 95.1 fL (79-99); MONOCYTES % (AUTO) 12.7 % (3.0-13.0); NEUTROPHILS % (AUTO) 59.1 % (40.0-77.0); PLATELET COUNT (AUTO) 220 K/uL (130-400); RED BLOOD CELL COUNT(AUTO) 4.13 MIL/uL (4.50-6.20); RED CELL DISTRIBUTION WIDTH 13.2 % (11.0-15.5); WHITE BLOOD COUNT (AUTO) 6.9 K/uL (4.8-10.8)
--- NOTE | 2018-12-02 04:00 | NUR ---
ASSESSMENT PATIENT IS RESTING IN BED. NO COMPLAINTS OF PAIN. NO SHORTNESS OF BREATH. NO SIGNS OF DISTRESS. CALL LIGHT WITHIN REACH. NO NEEDS AT THIS TIME.
[2018-12-02 04:14] LABS: CREATININE 1.2 mg/dL (0.5-1.5); POTASSIUM 4.2 mmol/L (3.5-5.1)
[2018-12-02] MEDS: INSULIN HUMULIN R 100 UNIT/ML 3ML SQ SCH ×2 (06:28→11:30)
[2018-12-02] MEDS ORDERED: NITROGLYCERIN 0.4 MG SL TAB SL SCH (08:15)
[2018-12-02 08:23] VITALS: BP 172/85
[2018-12-02] MEDS ORDERED: HYDR-3421 PO (08:25)
[2018-12-02] MEDS: ENOXAPARIN SODIUM 30 MG/0.3 ML SQ SCH (08:29)
[2018-12-02] MEDS ORDERED: CLOPIDOGREL BISULFATE 75 MG TAB PO SCH (09:00)
[2018-12-02] MEDS ORDERED: ATORVASTATIN CALCIUM 20 MG TABLET PO SCH (09:00)
[2018-12-02] MEDS ORDERED: AMLODIPINE BESYLATE 5 MG TAB PO SCH (09:00)
[2018-12-02] MEDS ORDERED: LEVOTHYROXINE 25 MCG TABLET PO SCH (09:00)
[2018-12-02] MEDS ORDERED: PANTOPRAZOLE SODIUM 40 MG TABLET.DR PO SCH (09:00)
[2018-12-02] MEDS ORDERED: FOLIC ACID/VITAMIN B COMP W-C 1 MG CAP/TAB PO SCH (09:00)
[2018-12-02] MEDS ORDERED: METOPROLOL TARTRATE 50 MG TAB PO SCH ×2 (09:00→21:00)
[2018-12-02] MEDS ORDERED: CITALOPRAM 20 MG TABLET PO SCH (09:00)
[2018-12-02] MEDS ORDERED: GABAPENTIN 300 MG CAPSULE PO SCH (09:00)
[2018-12-02] MEDS ORDERED: GEMFIBROZIL 600 MG TABLET PO SCH (09:00)
[2018-12-02 12:40] VITALS: BP 169/75
[2018-12-02] MEDS ORDERED: METFORMIN HCL 500 MG TABLET PO SCH (17:00)
== END 2018-12-02 15:56 | disposition home or self-care (01) | DRG 641 ==
LOC: EDH 15:00 → EDHIP 21:35 → 2AH 12-01 13:31
PROVIDERS: ADMIT Internal Medicine; ATTEND Internal Medicine
DX: E86.0 Dehydration (principal); N17.9 Acute kidney failure, unspecified; G47.33 Obstructive sleep apnea (adult) (pediatric); D64.9 Anemia, unspecified; E03.9 Hypothyroidism, unspecified; E11.51 Type 2 diabetes mellitus with diabetic peripheral angiopathy without gangrene; N18.9 Chronic kidney disease, unspecified; E11.22 Type 2 diabetes mellitus with diabetic chronic kidney disease; E78.5 Hyperlipidemia, unspecified; F41.9 Anxiety disorder, unspecified; M19.90 Unspecified osteoarthritis, unspecified site; I12.9 Hypertensive chronic kidney disease with stage 1 through stage 4 chronic kidney disease, or unspecified chronic kidney disease; Z79.84 Long term (current) use of oral hypoglycemic drugs; Z89.512 Acquired absence of left leg below knee; Z83.3 Family history of diabetes mellitus; Z82.49 Family history of ischemic heart disease and other diseases of the circulatory system
CPT/HCPCS: 36415; 71045; 80048; 80053; 80061; 82140; 82550; 82948; 83036; 83540; 83880; 84439; 84443; 84484; 85025; 85027; 85610; 85730; 93005; G0378; G0480; G0481; J0360; J1650; J1815; J3490; J7030

== ENCOUNTER → 2018-12-22 | Outpatient (CLI) | payer MEDICARE ==
[~2018-12-22] MED LIST changes: -ACET1TAB25 PO; +CITA10TA7 PO; -CLON0.2T PO; +FOLI1TAB61 PO; +HYDR-3421 PO; -LEVO500T89 PO; -LOSA25TA41 PO; -MELO-106 PO; -METR500P18 IV; +NAPR500T6 PO; +NITR0.4T50 SL
== END | disposition home or self-care (01) ==
LOC: SLP 19:57
PROVIDERS: ATTEND Internal Medicine Cardiovascular Disease
DX: G47.33 Obstructive sleep apnea (adult) (pediatric) (principal); R00.2 Palpitations; R06.09 Other forms of dyspnea; I10 Essential (primary) hypertension; E11.9 Type 2 diabetes mellitus without complications
CPT/HCPCS: 95810

== ENCOUNTER → 2019-01-01 | Outpatient (CLI) | payer MEDICARE | END | disposition home or self-care (01) | LOC: SLP 20:17 | PROVIDERS: ATTEND Internal Medicine Cardiovascular Disease | DX: G47.33 Obstructive sleep apnea (adult) (pediatric) (principal); I10 Essential (primary) hypertension; E11.9 Type 2 diabetes mellitus without complications | CPT/HCPCS: 95811 ==

== ENCOUNTER → 2019-03-05 | Outpatient (CLI) | payer MEDICARE ==
[~2019-03-05] MED LIST changes: +CYCL10 PO; +GLIM2TAB30 PO
== END | disposition home or self-care (01) ==
LOC: SHCH 08:20
PROVIDERS: ATTEND Internal Medicine Cardiovascular Disease
DX: I10 Essential (primary) hypertension (principal)
CPT/HCPCS: 93306

== ENCOUNTER 2019-04-14 06:41 | Emergency (ER) | payer MEDICARE ==
[~2019-04-14 06:41] MED LIST changes: -FOLI1TAB61 PO
[2019-04-14] MEDS ORDERED: ONDANSETRON HCL 4 MG/2 ML VIAL ONE (08:14)
[2019-04-14] MEDS ORDERED: DICYCLOMINE HCL 10 MG/ML 2ML AMP IM ONE (08:14)
[2019-04-14] MEDS ORDERED: LABETALOL 20 MG/4 ML DISP.SYRIN IV ONE (08:15)
[2019-04-14 08:20] LABS: BASOPHILS % (AUTO) 0.2 % (0.0-5.0); EOSINOPHILS % (AUTO) 0.7 % (0.0-8.0); HEMATOCRIT 38.9 % (42-54); LYMPHOCYTES % (AUTO) 12.2 % (21.0-51.0); MEAN CORPUSCULAR HEMOGLOBIN 30.7 pg (27.0-33.0); MEAN CORPUSCULAR HGB CONC 33.4 g/dL (32.0-36.0); MEAN CORPUSCULAR VOLUME 91.7 fL (79-99); MONOCYTES % (AUTO) 6.8 % (3.0-13.0); NEUTROPHILS % (AUTO) 79.7 % (40.0-77.0); PLATELET COUNT (AUTO) 273 K/uL (130-400); RED BLOOD CELL COUNT(AUTO) 4.24 MIL/uL (4.50-6.20); RED CELL DISTRIBUTION WIDTH 12.8 % (11.0-15.5); WHITE BLOOD COUNT (AUTO) 9.4 K/uL (4.8-10.8)
[2019-04-14 08:33] LABS: CREATININE 1.3 mg/dL (0.5-1.5); POTASSIUM 5.1 mmol/L (3.5-5.1)
[2019-04-14 08:36] LABS: INR 0.96 (0.85-1.15); PARTIAL THROMBOPLASTIN TIME 29.2 SEC (26.3-35.5); PROTHROMBIN TIME 10.1 SEC (9.6-11.6)
[2019-04-14 08:38] LABS: ALBUMIN 3.9 g/dL (3.5-5.0); BILIRUBIN,TOTAL 0.3 mg/dL (0.2-1.0); TOTAL PROTEIN, SERUM 7.6 g/dL (6.0-8.3)
[2019-04-14 09:02] LABS: B-TYPE NATRIURETIC PEPTIDE 87 pg/mL (0-100)
== END 2019-04-14 10:21 | disposition home or self-care (01) ==
LOC: EDH 06:41
DX: R10.84 Generalized abdominal pain (principal); I10 Essential (primary) hypertension; M19.90 Unspecified osteoarthritis, unspecified site; E11.9 Type 2 diabetes mellitus without complications; E78.5 Hyperlipidemia, unspecified; Z98.890 Other specified postprocedural states
CPT/HCPCS: 36415; 71045; 74176; 80053; 82550; 83735; 83880; 84484; 85025; 85610; 85730; 93005; 96372; 96374; 96375; 99285; J0500; J2405